=== PATIENT | female | born 1985 | race Caucasian/White ===

== ENCOUNTER 2020-07-01 09:35 | Emergency (ER) | payer OTHER, SELFPAY ==
--- NOTE | ~2020-07-01 | US_ITS ---
EXAMINATION: US ABDOMEN LIMITED CLINICAL INFORMATION: Upper abdomen pain. Elevated liver function testing.. COMPARISON: None TECHNIQUE: Real-time imaging of the right upper quadrant abdominal viscera. FINDINGS: PANCREAS: No suspicious abnormality in the visualized portions of the pancreas LIVER: Normal. The liver is normal in size. The liver contour is normal. Parenchymal echogenicity is normal. No focal hepatic lesion. There is no intrahepatic biliary duct dilatation seen. GALLBLADDER: Surgically absent. No tenderness to transducer pressure in the expected region of the gallbladder COMMON BILE DUCT: Normal in caliber measuring 0.6 cm in diameter. RIGHT KIDNEY: Normal. No hydronephrosis. No renal calculi or focal parenchymal lesions. The kidney measures 9.4 cm in maximum dimension. FREE FLUID: None. US/US abdomen limited IMPRESSION: No abnormality demonstrated. Specifically evidence of previous cholecystectomy. No biliary dilation. No ascites
[2020-07-01 09:42] VITALS: BP 138/94; PULSE 71; RESP 20; TEMP 36.8; O2SAT 99; BMI 20.5
--- NOTE | 2020-07-01 11:09 | ED_ITS ---
HPI - Nausea/Vomiting/Diarrhea General Chief complaint: Nausea/Vomiting/Diarrhea Stated complaint: VOMITING Time Seen by Provider: 07/01/20 11:09 Source: patient Mode of arrival: ambulatory Limitations: no limitations History of Present Illness HPI Narrative: 35 yo female with celiac, gastritis, anxiety currently not treated has noted over the past several days increased acid and n/v now with diffuse abdominal pain has had this before in the past, not on PPI anymore MD elicited complaint: nausea, vomiting and abdominal pain Pertinent past history: cyclical vomiting and other (gastritis) Onset (ago): day(s) (several ) Description of vomiting: food contents, watery and bilious Associated nausea: Yes Associated abdominal pain: Yes Location of pain: diffuse Radiation: diffuse Pain consistency: constant Severity: severe Quality: cramping and stabbing Exacerbating factors: eating Relieving factors: none Context: marijuana use Associated symptoms: loss of appetite, malaise and nausea/vomiting Related Data Previous Rx's Medication Instructions Recorded hydroxyzine HCl 25 mg PO TID PRN #30 tab 07/01/20 omeprazole 20 mg PO DAILY 14 Days #14 cap 07/01/20 ondansetron 4 mg PO Q8H PRN #20 tab 07/01/20 Allergies Allergy/AdvReac Type Severity Reaction Status Date / Time morphine [MORPHINE] Allergy Intermediate NAUSEA & Unverified 12/07/19 15:48 VOMITING, Violently ill Review of Systems Review of Systems: Constitutional : No Weight loss, No Fever, No Chills ENT/Mouth : No sore throat, No Rhinorrhea Eyes: No Swelling, No Redness Cardiovascular : No Chest Pain, No SOB, NoEdema Respiratory : No Cough, No Sputum, No Wheezing Gastrointestinal : Positive Nausea, Positive Vomiting, positive Diarrhea, positive abdominal Pain, No Hematochezia, No Melena Genitourinary : No Dysuria, No Urinary Frequency, No Hematuria, No Urgency Musculoskeletal : No joint pain, No Myalgias, No Joint Swelling Skin : No Skin Lesions, No rash Neuro : No Weakness, No Numbness, No Dizziness, No Headache Psych : No Anxiety/Panic, No Depression Heme/Lymph: No Bruising, No Lymphadenopathy Endocrine : No Polyuria, No Polydipsia All other systems reviewed and are negative. Gastrointestinal: Gastrointestinal: Reports nausea PMFSH Past Medical History Attestation statement: The following information was validated with the patient. Medical History (Updated 07/01/20 @ 15:05 by Kailee Rodgers DO) Bile salt-induced diarrhea Celiac disease Chronic superficial gastritis Surgical History H/O section History of appendectomy Hx of cholecystectomy Social History Social History (Updated 07/01/20 @ 11:32 by Kailee Rodgers DO) Alcohol intake: never Smoking Status: Former smoker Smoked in Last 30 Days: No Use of substances other than those prescribed or required for medical reasons: Yes Substance Use Type: Marijuana Substance Use Frequency: Occasionally Advance Directives: No Advance Directives Information Provided: No Physical Exam Vital Signs: Vital Signs: Last Vital Signs Temp 98.2 F 07/01/20 09:42 Pulse 71 07/01/20 09:42 Resp 20 07/01/20 09:42 BP 138/94 H 07/01/20 09:42 Pulse Ox 99 07/01/20 09:42 Body Mass Index 20.5 Appearance: Alert. Oriented X3. anxious, mild acute distress. Eyes: Pupils equal, round and reactive to light. ENT: Pharynx mildly dry MM Neck: Normal inspection. Neck supple. CVS: Normal heart rate and rhythm. Pulses normal. Respiratory: No respiratory distress. Breath sounds normal. Abdomen: Soft and diffusely moderate ttp Skin: Skin warm and dry. Normal skin color. Normal skin turgor. Extremities: No lower extremity edema. No calf ttp Neuro: Oriented X 3. No motor deficit. No sensory deficit. Course Course Course Narrative: no urine provided at this time - feels better, tolerating PO US negative despite LFTs will instruct her to follow up with PCP MDM - Nausea/Vomiting/Diarrhea MDM Narrative Medical decision making narrative: 35 yo female with PMH of gastritis, anxiety comes in with increased acid, n/v/d and abdominal pain also smokes THC regularly, no longer on PPI at this time typical episode for her, will treat n/v and give pepcid basic labs ordered, dispo per results and findings, either gastritis vs THC induced hyperemesis Lab Data Result diagrams: 07/01/20 11:34 07/01/20 11:34 Labs: Lab Results 07/01/20 07/01/20 07/01/20 Range/Units 11:34 11:34 11:34 WBC 7.5 (4.8-10.8) X10*3/uL RBC 4.75 (4.20-5.50) X10*6/uL Hgb 13.6 (12.0-16.0) g/dl Hct 40.4 (37-47) % MCV 85.1 (80-98) fL MCH 28.6 (27.0-33.0) pg MCHC 33.7 (31.0-35.0) g/dl RDW 12.2 (11.0-16.0) % Plt Count 312 (160-400) X10*3/uL MPV 11.0 (9.4-12.3) fL Immature Gran % (Auto) 0.3 (0.0-0.4) % Neut % (Auto) 86.2 H (45-73) % Lymph % (Auto) 10.7 L (20-40) % [place] % (Auto) 2.4 (2-11) % Eos % (Auto) 0.1 (0-4) % Baso % (Auto) 0.3 (0-2) % Lymph # (Auto) 0.8 L (1.2-4.9) X10*3/uL [place] # (Auto) 0.2 (0.1-1.2) X10*3/uL Eos # (Auto) 0.0 (0.0-0.4) X10*3/uL Baso # (Auto) 0.0 (0.0-0.2) X10*3/uL Abs Immat Gran (auto) 0.02 (0.00-0.03) X10*3/uL Absolute Neuts (auto) 6.5 (2.0-8.3) X10*3/uL Absolute Nucleated RBC 0.000 (0.0-0.012) X10*3/uL Nucleated RBC % (auto) 0.0 (0.0-0.2) /100WBC Hold Blue Top SEE NOTE Sodium 138 (135-145) mmol/L Potassium 4.7 (3.3-5.1) mmol/L Chloride 108 (96-108) mmol/L Carbon Dioxide 17 L (22-29) mmol/L Anion Gap 18 (12-20) BUN 10 (9-16) mg/dL Creatinine 0.74 (0.5-1.4) mg/dL Estim Creat Clear Calc 77.6 Estimated GFR > 60 Random Glucose 97 (60-115) mg/dL Calcium 9.5 (8.4-10.2) mg/dL Magnesium (1.6-2.6) mg/dL Total Bilirubin (0.0-1.0) mg/dL Direct Bilirubin (0.0-0.5) mg/dL AST (5-31) U/L ALT (0-31) U/L Alkaline Phosphatase (39-117) U/L Total Protein (6.5-8.0) g/dL Albumin (3.5-5.0) g/dL Lipase (8-78) U/L Urine Color Urine Appearance Urine pH (5.0-8.0) Ur Specific [place] (1.005-1.025) Urine Protein (NEG-TRACE) MG/DL Urine Glucose (UA) (NEG) MG/DL Urine Ketones (NEG) MG/DL Urine Blood (NEG) Urine Nitrite (NEG) Ur Leukocyte Esterase (NEG) Urine Test (NEGATIVE) 07/01/20 07/01/20 07/01/20 Range/Units 11:34 15:16 15:16 WBC (4.8-10.8) X10*3/uL RBC (4.20-5.50) X10*6/uL Hgb (12.0-16.0) g/dl Hct (37-47) % MCV (80-98) fL MCH (27.0-33.0) pg MCHC (31.0-35.0) g/dl RDW (11.0-16.0) % Plt Count (160-400) X10*3/uL MPV (9.4-12.3) fL Immature Gran % (Auto) (0.0-0.4) % Neut % (Auto) (45-73) % Lymph % (Auto) (20-40) % [place] % (Auto) (2-11) % Eos % (Auto) (0-4) % Baso % (Auto) (0-2) % Lymph # (Auto) (1.2-4.9) X10*3/uL [place] # (Auto) (0.1-1.2) X10*3/uL Eos # (Auto) (0.0-0.4) X10*3/uL Baso # (Auto) (0.0-0.2) X10*3/uL Abs Immat Gran (auto) (0.00-0.03) X10*3/uL Absolute Neuts (auto) (2.0-8.3) X10*3/uL Absolute Nucleated RBC (0.0-0.012) X10*3/uL Nucleated RBC % (auto) (0.0-0.2) /100WBC Hold Blue Top Sodium (135-145) mmol/L Potassium (3.3-5.1) mmol/L Chloride (96-108) mmol/L Carbon Dioxide (22-29) mmol/L Anion Gap (12-20) BUN (9-16) mg/dL Creatinine (0.5-1.4) mg/dL Estim Creat Clear Calc Estimated GFR Random Glucose (60-115) mg/dL Calcium (8.4-10.2) mg/dL Magnesium 2.1 (1.6-2.6) mg/dL Total Bilirubin 1.1 H (0.0-1.0) mg/dL Direct Bilirubin 0.3 (0.0-0.5) mg/dL AST 116 H (5-31) U/L ALT 462 H (0-31) U/L Alkaline Phosphatase 71 (39-117) U/L Total Protein 7.7 (6.5-8.0) g/dL Albumin 4.5 (3.5-5.0) g/dL Lipase 12 (8-78) U/L Urine Color YELLOW Urine Appearance CLEAR Urine pH 7.0 (5.0-8.0) Ur Specific [place] 1.020 (1.005-1.025) Urine Protein NEG (NEG-TRACE) MG/DL Urine Glucose (UA) NEG (NEG) MG/DL Urine Ketones >=80 (NEG) MG/DL Urine Blood NEG (NEG) Urine Nitrite NEG (NEG) Ur Leukocyte Esterase NEG (NEG) Urine Test NEGATIVE (NEGATIVE) Discharge Plan Discharge Clinical Impression: Elevated liver function tests Gastritis Qualifiers: Gastritis type: unspecified gastritis Chronicity: acute Gastritis bleeding: without bleeding Qualified Code(s): K29.00 - Acute gastritis without bleeding Vomiting Qualifiers: Vomiting type: unspecified Vomiting Intractability: non-intractable Nausea presence: with nausea Qualified Code(s): R11.2 - Nausea with vomiting, unspecified Patient Disposition: Home, Self-Care Instructions: Gastritis (ED), Acute Nausea and Vomiting (ED) Additional Instructions: return to ED for any worsening symptoms or concerns AVOID TYLENOL (ACETAMINOPHEN) PRODUCTS, YOUR DOCTOR NEEDS TO REPEAT YOUR LIVER FUNCTION TESTS IN 3 TO 5 DAYS WITH YOUR DOCTOR, DO NOT DRINK ALCOHOL Prescriptions: New ondansetron 4 mg tablet,disintegrating 4 mg PO Q8H PRN (Reason: nausea and vomiting) Qty: 20 RF: 0 omeprazole 20 mg capsule,delayed release(DR/EC) 20 mg PO DAILY 14 Days Qty: 14 RF: 0 hydroxyzine HCl 25 mg tablet 25 mg PO TID PRN (Reason: anxiety) Qty: 30 RF: 0 Referrals: Lexi Aldrich MD [Primary Care Provider] - 3 days
[2020-07-01 11:38] LABS: MANUAL DIFF FLAG NO
[2020-07-01 11:40] LABS: Basophils Percent Auto 0.3 % (0-2); Eosinophils Percent Auto 0.1 % (0-4); Hematocrit 40.4 % (37-47); Hemoglobin 13.6 g/dl (12.0-16.0); Imm Gran Abs Auto 0.02 X10*3/uL (0.00-0.03); Imm Gran Pct Auto 0.3 % (0.0-0.4); Lymphocytes Absolute Auto 0.8 X10*3/uL (1.2-4.9); Lymphocytes Percent Auto 10.7 % (20-40); Mean Corpuscular HGB Conc 33.7 g/dl (31.0-35.0); Mean Corpuscular Hemoglobin 28.6 pg (27.0-33.0); Mean Corpuscular Volume 85.1 fL (80-98); Monocytes Absolute Auto 0.2 X10*3/uL (0.1-1.2); Monocytes Percent Auto 2.4 % (2-11); Neutrophils Absolute Auto 6.5 X10*3/uL (2.0-8.3); Neutrophils Percent Auto 86.2 % (45-73); Platelet Count 312 X10*3/uL (160-400); Red Blood Count 4.75 X10*6/uL (4.20-5.50); Red Cell Distribution Width 12.2 % (11.0-16.0); White Blood Count 7.5 X10*3/uL (4.8-10.8)
[2020-07-01] MEDS: Metoclopramide HCl 10 MG/2 ML VIAL IVPUSH (12:01)
[2020-07-01] MEDS: diphenhydrAMINE HCL 50 MG/ML VIAL 25 MG IVPUSH (12:01)
[2020-07-01] MEDS: Famotidine/PF 20 MG/2 ML VIAL IVPUSH (12:01)
[2020-07-01] MEDS: 0.9 % Sodium Chloride 1,000 ML 999 ML IVCONT (12:01)
[2020-07-01 12:10] LABS: Anion Gap 18 (12-20); Blood Urea Nitrogen 10 mg/dL (9-16); Calcium 9.5 mg/dL (8.4-10.2); Carbon Dioxide 17 mmol/L (22-29); Chloride 108 mmol/L (96-108); Creatinine Clr Calc Pharmacy 77.6; Estimated Glomerular Filt Rate > 60; Glucose Random 97 mg/dL (60-115); Potassium 4.7 mmol/L (3.3-5.1); Sodium 138 mmol/L (135-145)
[2020-07-01 12:14] LABS: Alanine Aminotransferase 462 U/L (0-31); Albumin Level 4.5 g/dL (3.5-5.0); Alkaline Phosphatase 71 U/L (39-117); Aspartate Amino Transferase 116 U/L (5-31); Bilirubin Direct 0.3 mg/dL (0.0-0.5); Bilirubin Total 1.1 mg/dL (0.0-1.0); Lipase 12 U/L (8-78); Magnesium 2.1 mg/dL (1.6-2.6); Total Protein 7.7 g/dL (6.5-8.0)
--- NOTE | 2020-07-01 15:02 | PC.NURSE ---
given po challenge, tolerating w/o notable n/v.
[2020-07-01 15:34] LABS: Glucose Urine UA NEG (NEG); Leukocyte Esterase Urine NEG (NEG); Nitrite Urine NEG (NEG); Urine Blood NEG (NEG); Urine Ketones >=80 MG/DL (NEG); Urine Protein NEG (NEG-TRACE)
[2020-07-01 15:50] LABS: Appearance Urine CLEAR; Color Urine YELLOW
[2020-07-01 15:51] LABS: UPreg QC Valid YES; Urine Pregnancy NEGATIVE (NEGATIVE)
[2020-07-01 15:59] LABS: Amphetamine Screen Urine Not Detected (Not Detect); Barbiturates, Urine Not Detected (Not Detect); Benzodiazepines Screen Urine Not Detected (Not Detect); Cannabinoid Screen Urine POSITIVE (Not Detect); Cocaine Screen Urine Not Detected (Not Detect); Opiate Screen Urine Not Detected (Not Detect); Phencyclidine Screen Urine Not Detected (Not Detect)
== END 2020-07-01 15:59 | disposition home or self-care (01) ==
PROVIDERS: Emergency Provider Emergency Medicine; PCP Internal Medicine
DX: K29.00 Acute gastritis without bleeding (principal); R11.2 Nausea with vomiting, unspecified; R79.89 Other specified abnormal findings of blood chemistry; F12.90 Cannabis use, unspecified, uncomplicated
CPT/HCPCS: 36415; 76705; 80048; 80076; 80307; 81003; 81025; 83690; 83735; 85025; 96361; 96374; 96375; 99284; J1200; J2765

== ENCOUNTER 2020-09-03 10:18 | Outpatient (REF) | payer OTHER, SELFPAY | END 2020-09-03 10:19 | disposition home or self-care (01) | LOC: HO.LAB 10:18 | PROVIDERS: PCP Internal Medicine; Visit Provider Physician Assistant | DX: Z13.89 Encounter for screening for other disorder (principal) ==

== ENCOUNTER 2020-09-03 11:44 | Outpatient (REF) | payer OTHER, SELFPAY ==
[2020-09-03 14:18] LABS: Alanine Aminotransferase 20 U/L (0-31); Albumin Level 4.5 g/dL (3.5-5.0); Alkaline Phosphatase 65 U/L (39-117); Aspartate Amino Transferase 19 U/L (5-31); Bilirubin Direct 0.3 mg/dL (0.0-0.5); Bilirubin Total 0.8 mg/dL (0.0-1.0); C Reactive Protein 0.09 mg/dL (< or = 0.50); Lipase 17 U/L (8-78); Total Protein 7.2 g/dL (6.5-8.0)
[2020-09-03 14:54] LABS: Erythrocyte Sedimentation Rate 4 MM/HR (0-20)
[2020-09-04 07:36] LABS: HBS Num1 403.25 mIU/mL (0-7.99); HBc Num1 0.06 S/CO (0.00-0.79); Hepatitis A Antibody IgM 0.19 Index (0-0.79); Hepatitis B Core Antibody Nonreactive (Nonreactive); ~HepC Num1 0.05 S/CO (0.00-0.79); ~Hepatitis A Antibody IgM Nonreactive (Nonreactive); ~Hepatitis B Surface Antibody REACTIVE (Nonreactive); ~Hepatitis C Antibody Nonreactive (Nonreactive)
[2020-09-04 07:47] LABS: HBsAGNum1 0.25 S/CO (0.00-0.99); Hepatitis B Surface Antigen Negative (Negative)
[2020-09-05 13:52] LABS: Alpha 1 Anti-trypsin 199 mg/dL (83-199); Ceruloplasmin 41 mg/dL (18-53)
[2020-09-05 15:27] LABS: Transglutaminase IgA 1 U/mL
[2020-09-05 23:11] LABS: HCV Log PCR <1.18 NOT DETECTED Log IU/mL (NOT DETECTED); HepC Viral Load <15 NOT DETECTED IU/mL (NOT DETECTED)
[2020-09-07 12:52] LABS: Endomysial IgA Antibody Negative (Negative)
[2020-09-07 15:16] LABS: Anti Nuclear Antibody Screen NEGATIVE (NEGATIVE)
== END 2020-09-03 11:45 | disposition home or self-care (01) ==
LOC: HO.WFDLDS 11:44
PROVIDERS: Visit Provider Physician Assistant
DX: R10.11 Right upper quadrant pain (principal); R74.01 Elevation of levels of liver transaminase levels; R74.8 Abnormal levels of other serum enzymes; K52.9 Noninfective gastroenteritis and colitis, unspecified; R79.89 Other specified abnormal findings of blood chemistry; B19.20 Unspecified viral hepatitis C without hepatic coma
CPT/HCPCS: 80076; 82103; 82390; 83516; 83690; 85652; 86038; 86039; 86140; 86255; 86256; 86704; 86706; 86709; 86803; 87340; 87522

== ENCOUNTER 2020-09-05 15:57 | Outpatient (REF) | payer OTHER, SELFPAY ==
[2020-09-12 01:46] LABS: Calprotectin, Fecal 17 mcg/g
== END 2020-09-05 15:58 | disposition home or self-care (01) ==
LOC: HO.LNP 15:57
PROVIDERS: Visit Provider Physician Assistant
DX: K52.9 Noninfective gastroenteritis and colitis, unspecified (principal); R11.2 Nausea with vomiting, unspecified; R74.8 Abnormal levels of other serum enzymes
CPT/HCPCS: 83993; 87045; 87046; 87177; 87209; 87329

== ENCOUNTER 2020-09-13 11:25 | Outpatient (REF) | payer OTHER, SELFPAY ==
--- NOTE | ~2020-09-13 | US_ITS ---
EXAMINATION: US ABDOMEN LIMITED CLINICAL INFORMATION: Abnormal levels of other serum enzymes. COMPARISON: Ultrasound abdomen limited dated 07/01/2020. Ultrasound abdomen complete dated 10/13/2018. CT abdomen and pelvis with intravenous contrast only dated 10/09/2018. TECHNIQUE: Real-time imaging of the right upper quadrant abdominal viscera. FINDINGS: PANCREAS: Homogeneous pancreas without focal lesion. LIVER: Normal. The liver is normal in size. The liver contour is normal. Parenchymal echogenicity is normal. No focal hepatic lesion. There is no intrahepatic biliary duct dilatation seen. GALLBLADDER: Surgically absent. COMMON BILE DUCT: Normal in caliber measuring 0.63 cm in diameter. RIGHT KIDNEY: Normal. No hydronephrosis. No renal calculi or focal parenchymal lesions. The kidney measures 9.4 cm in maximum dimension. FREE FLUID: None. US/US abdomen limited IMPRESSION: Unremarkable limited abdomen ultrasound. No change from recent ultrasound exam 07/01/2020
== END 2020-09-13 11:26 | disposition home or self-care (01) ==
LOC: HO.HMGCX 11:25
PROVIDERS: PCP Internal Medicine; Visit Provider Internal Medicine
DX: R74.8 Abnormal levels of other serum enzymes (principal)
CPT/HCPCS: 76705

== ENCOUNTER → 2020-09-17 08:25 | Outpatient (BNVA) | payer OTHER, SELFPAY | PROVIDERS: PCP Internal Medicine; Referring Provider Internal Medicine; Visit Provider Physician Assistant | DX: R74.8 Abnormal levels of other serum enzymes (principal); R11.2 Nausea with vomiting, unspecified | CPT/HCPCS: 99212 ==

== ENCOUNTER 2020-09-17 09:26 | Outpatient (REF) | payer OTHER, SELFPAY ==
[2020-09-17 12:42] LABS: Thyroid Stimulating Hormone 0.54 uIU/mL (0.32-4.0)
== END 2020-09-17 09:27 | disposition home or self-care (01) ==
LOC: HO.WFDLDS 09:26
PROVIDERS: Visit Provider Physician Assistant
DX: K59.09 Other constipation (principal)
CPT/HCPCS: 36415; 84443

== ENCOUNTER → 2020-10-22 08:35 | Outpatient (BNVA) | payer OTHER, SELFPAY | PROVIDERS: PCP Internal Medicine; Referring Provider Internal Medicine; Visit Provider Physician Assistant | DX: R11.2 Nausea with vomiting, unspecified (principal); K52.9 Noninfective gastroenteritis and colitis, unspecified; R74.8 Abnormal levels of other serum enzymes | CPT/HCPCS: 99212 ==

== ENCOUNTER 2021-12-31 16:17 | Emergency (ER) | payer OTHER, SELFPAY ==
--- NOTE | ~2021-12-31 | CT_ITS ---
EXAMINATION: CTA CHEST PE STUDY CLINICAL INFORMATION: tachy, sob, hormones COMPARISON: No pertinent prior studies are available for comparison. TECHNIQUE: Prior to contrast administration, noncontrast localization images were obtained. After the administration of 54 mL of Omnipaque nonionic IV contrast, contiguous thin slice helical images were obtained through the thorax. Reformatted MIP images in the coronal and sagittal planes were obtained at the acquisition workstation. This CT examination was performed using dose optimization techniques as appropriate, variously including the following: *Automated exposure control *Adjustment of mA and/or kV according to patient size (this includes techniques or standardized protocols for targeted exams where dose is matched to indication/reason for exam; i.e. extremities or head) *Use of iterative reconstruction technique DLP: 146 mGy-cm. FINDINGS: The bolus timing on this study was acceptable for visualization of the pulmonary arterial tree. There are no intraluminal pulmonary arterial filling defects present to suggest pulmonary embolism. The lungs are clear. No abnormal pulmonary nodules or masses are appreciated. No significant hilar or mediastinal adenopathy. There is no evidence of pleural effusion or pneumothorax. The heart is normal in size. No evidence of ventricular septal bowing or right heart strain. Great vessels are normal. Otherwise the mediastinum is unremarkable. There is no pericardial effusion or pericardial thickening. Limited evaluation of the upper abdominal viscera demonstrates the gallbladder to be surgically absent. CT/CT angio chest PE protocol IMPRESSION: No evidence for pulmonary emboli. No focal airspace disease VTE: Negative
[2021-12-31 17:40] VITALS: BP 185/118; PULSE 100; RESP 16; TEMP 36.8; O2SAT 99; BMI 18.5
--- NOTE | 2021-12-31 17:43 | ECG_ITS ---
Test Reason : HYPERTENSION Blood Pressure : / mmHG Vent. Rate : 082 BPM Atrial Rate : 082 BPM P-R Int : 108 ms QRS Dur : 076 ms QT Int : 404 ms P-R-T Axes : 080 096 072 degrees QTc Int : 472 ms Sinus rhythm with sinus arrhythmia with short MT with occasional Premature ventricular complexes Rightward axis Borderline ECG When compared with ECG of 12-OCT-2018 09:54, Premature ventricular complexes are now Present T wave amplitude has increased in Anterior leads ST no longer depressed in Inferior leads Lateral leads Referred By: Generic ED Physician Electronically Signed By:WHITNEY WILSON MD
[2021-12-31 18:02] LABS: Hematocrit 42.4 % (37.0-47.0); Hemoglobin 14.9 g/dl (12.0-16.0); Mean Corpuscular HGB Conc 35.1 g/dl (31.0-35.0); Mean Corpuscular Hemoglobin 29.2 pg (27.0-33.0); Mean Platelet Volume 10.6 fL (9.4-12.3); Platelet Count 308 X10*3/uL (160-400); Red Blood Count 5.11 X10*6/uL (4.20-5.50); Red Cell Distribution Width 12.1 % (11.0-16.0); White Blood Count 7.3 X10*3/uL (4.8-10.8)
[2021-12-31 18:19] LABS: Anion Gap 20 (12-20); Blood Urea Nitrogen 10 mg/dL (9-16); Calcium 9.8 mg/dL (8.4-10.2); Carbon Dioxide 18 mmol/L (22-29); Chloride 106 mmol/L (96-108); Creatinine Clr Calc Pharmacy 70.9; Estimated Glomerular Filt Rate > 60; Glucose Random 95 mg/dL (60-115); Potassium 3.6 mmol/L (3.3-5.1); Sodium 140 mmol/L (135-145)
[2021-12-31 18:26] LABS: Troponin-I High Sensitivity < 3.5 ng/L (<3.5-17.0)
--- NOTE | 2021-12-31 20:28 | ED_ITS ---
HPI - General Adult General Chief complaint: Recheck/Abnormal Lab/Rx Stated complaint: High Blood Pressure Time Seen by Provider: 12/31/21 20:23 Source: patient Mode of arrival: ambulatory Limitations: no limitations History of Present Illness HPI narrative: 36-year-old female presents for elevated blood pressure, dizziness, shortness of breath on exertion, chest pain radiating to her back. She states the pain is worsened over the past few hours while she was waiting. She was at her doctor's office to obtain a prescription for control. She has been on control for several years. She does vape, but does not report smoking any other substances. She does not report any edema, productive cough, abdominal pain, abdominal distention, dysuria, hematuria, headache, changes in vision or weakness. Onset (ago): day(s) Location: chest Radiation: non-radiation Severity: moderate Severity scale (1-10): 4 Quality: aching Pain Consistency: constant Relieving factors: none Exacerbating factors: movement Associated symptoms: chest pain and other (Back pain) Treatments prior to arrival: none Related Data Home Medications Medication Instructions Recorded Confirmed desogestrel 0.15 mg-ethinyl 1 tab PO DAILY 08/22/20 09/17/20 estradiol 0.03 mg tablet Previous Rx's Medication Instructions Recorded omeprazole 20 mg capsule,delayed 20 mg PO DAILY 14 days #14 caps 07/01/20 release hydroxyzine HCl 25 mg tablet 25 mg PO BEDTIME #30 tabs 09/17/20 ondansetron 4 mg disintegrating 4 mg PO Q8H PRN nausea and 10/22/20 tablet vomiting #20 tabs hydrochlorothiazide 12.5 mg tablet 12.5 mg PO DAILY #30 tabs 12/31/21 Allergies Allergy/AdvReac Type Severity Reaction Status Date / Time morphine [MORPHINE] Allergy Intermediate NAUSEA & Verified 10/22/20 08:45 VOMITING, Violently ill Review of Systems Review of Systems: Constitutional: No Fever, No Chills ENT/Mouth: No Ear Pain, No Hoarseness, No sore throat Eyes: No Eye Pain, No Swelling, No Redness, No Foreign Body Cardiovascular: Positive Chest Pain, positive SOB on exertion Respiratory: No Cough, No Dyspnea Gastrointestinal: No Nausea, No Vomiting, No Diarrhea, No abdominal Pain Genitourinary: No Dysuria, No Hematuria Musculoskeletal: Positive back pain, No Myalgias, No Joint Swelling Skin: No Skin lacerations, No rash Neuro: No Weakness, No Numbness, No Paresthesias, No Loss of Consciousness, positive Dizziness, No Headache Psych: No Anxiety/Panic, No Depression Heme/Lymph: no easy bruising, no Lymphadenopathy Endocrine: No Polyuria, No Polydipsia Yes all other systems are reviewed and are negative [facility] Past Medical History Attestation statement: The following information was validated with the patient. Source: old records reviewed Medical History Bile salt-induced diarrhea Celiac disease Chronic superficial gastritis Elevated liver enzymes Generalized anxiety disorder Surgical History H/O section H/O LEEP History of appendectomy Hx of cholecystectomy Family History Family History Father Acute myocardial infarction Social History Social History Household Members Other:: Three children, recently single Alcohol intake: never Substance Use Type: Marijuana Advance Directives: No Advance Directives Information Provided: No Physical Exam ED Vital Signs: Vital Signs - 24 hr 12/31/21 17:40 12/31/21 20:30 12/31/21 20:33 Temperature 98.2 F Pulse Rate 100 81 Respiratory Rate 16 18 Blood Pressure 185/118 H 178/113 H 183/99 H Pulse Oximetry 99 98 Oxygen Delivery Method Room Air Room Air 12/31/21 22:26 Temperature Pulse Rate 73 Respiratory Rate 18 Blood Pressure 127/80 Pulse Oximetry 98 Oxygen Delivery Method Room Air BMI result Body Mass Index 18.5 Appearance: Alert. Oriented X3. No acute distress. Eyes: Pupils equal, round and reactive to light. ENT: Pharynx normal. Neck: Normal inspection. Neck supple. CVS: Tachycardic heart rate and rhythm. Apical pulse good pulses to extremities. Respiratory: No respiratory distress. Breath sounds normal. Abdomen: Soft and nontender. Skin: Skin warm and dry. Normal skin color. Normal skin turgor. Extremities: No lower extremity edema. Gait well-balanced well coordinated. Neuro: No motor deficit. No sensory deficit. Cranial nerves 2-12 intact. Course Course Course Narrative: 36-year-old female presents from her physician's office for evaluation for elevated blood pressure, dizziness, chest pain, back pain, and overall feeling of unwellness. Patient was being evaluated for control, which she has been on for several years, which she was referred to emergency department for an elevated blood pressure. Blood pressure reading on initial presentation was 185/118 with a tachycardic heart rate of 100. Patient has chest pain and pressure throughout the left chest wall, and an aching back pain. She is alert oriented x4, articulating appropriately, has a well-balanced well coordinated gait. Wells PE score 4.5. Will order CT PE study. 22:30 CT PE negative. Patient states that she does not feel well, lab workup is unremarkable. COVID tests are negative. Will add on TSH. 23:09 TSH is within normal limits. Will have patient follow-up with primary care physician for further workup. Will treat with prescription for hydrochlorothiazide for elevated blood pressures. Patient verbalized understanding of and agrees to plan of care discharge home. Verbalized understanding of signs and symptoms indicating need for emergent intervention. Medical Decision Making Differential Diagnosis Differential Diagnosis: PE, pneumo thorax, COVID, influenza, pneumonia Medical Records Medical records reviewed: Yes I reviewed the patient's medical records. Lab Data Lab results reviewed: Yes I reviewed the patient's lab results. Result diagrams: 12/31/21 17:50 12/31/21 17:50 Labs: Lab Results 12/31/21 12/31/21 12/31/21 Range/Units 17:50 17:50 17:50 WBC 7.3 (4.8-10.8) X10*3/uL RBC 5.11 (4.20-5.50) X10*6/uL Hgb 14.9 (12.0-16.0) g/dl Hct 42.4 (37.0-47.0) % MCV 83.0 (80.0-98.0) fL MCH 29.2 (27.0-33.0) pg MCHC 35.1 H (31.0-35.0) g/dl RDW 12.1 (11.0-16.0) % Plt Count 308 (160-400) X10*3/uL MPV 10.6 (9.4-12.3) fL Absolute Nucleated RBC 0.000 (0.0-0.012) X10*3/uL Nucleated RBC % (auto) 0.0 (0.0-0.2) /100WBC Sodium 140 (135-145) mmol/L Potassium 3.6 D (3.3-5.1) mmol/L Chloride 106 (96-108) mmol/L Carbon Dioxide 18 L (22-29) mmol/L Anion Gap 20 (12-20) BUN 10 (9-16) mg/dL Creatinine 0.76 (0.5-1.4) mg/dL Estim Creat Clear Calc 70.9 Estimated GFR > 60 Random Glucose 95 (60-115) mg/dL Calcium 9.8 (8.4-10.2) mg/dL Magnesium 2.0 (1.6-2.6) mg/dL Troponin I High Sens < 3.5 (<3.5-17.0) ng/L Urine Color Urine Appearance Urine pH (5.0-9.0) Ur Specific [place] (1.005-1.025) Urine Protein (Neg-Trace) mg/dL Urine Glucose (UA) (Negative) mg/dL Urine Ketones (Negative) mg/dL Urine Blood (Negative) Urine Nitrite (Negative) Ur Leukocyte Esterase (Negative) Influenza Type A (PCR) (Negative) Influenza Type B (PCR) (Negative) RSV RNA Qual (PCR) (Negative) SARS-CoV-2 RNA (RT-PCR) (Negative) 12/31/21 12/31/21 Range/Units 20:37 22:26 WBC (4.8-10.8) X10*3/uL RBC (4.20-5.50) X10*6/uL Hgb (12.0-16.0) g/dl Hct (37.0-47.0) % MCV (80.0-98.0) fL MCH (27.0-33.0) pg MCHC (31.0-35.0) g/dl RDW (11.0-16.0) % Plt Count (160-400) X10*3/uL MPV (9.4-12.3) fL Absolute Nucleated RBC (0.0-0.012) X10*3/uL Nucleated RBC % (auto) (0.0-0.2) /100WBC Sodium (135-145) mmol/L Potassium (3.3-5.1) mmol/L Chloride (96-108) mmol/L Carbon Dioxide (22-29) mmol/L Anion Gap (12-20) BUN (9-16) mg/dL Creatinine (0.5-1.4) mg/dL Estim Creat Clear Calc Estimated GFR Random Glucose (60-115) mg/dL Calcium (8.4-10.2) mg/dL Magnesium (1.6-2.6) mg/dL Troponin I High Sens (<3.5-17.0) ng/L Urine Color Yellow Urine Appearance Clear Urine pH 8.5 (5.0-9.0) Ur Specific [place] >= 1.030 H (1.005-1.025) Urine Protein Negative (Neg-Trace) mg/dL Urine Glucose (UA) Negative (Negative) mg/dL Urine Ketones 40 (Negative) mg/dL Urine Blood Negative (Negative) Urine Nitrite Negative (Negative) Ur Leukocyte Esterase Negative (Negative) Influenza Type A (PCR) NEGATIVE (Negative) Influenza Type B (PCR) NEGATIVE (Negative) RSV RNA Qual (PCR) NEGATIVE (Negative) SARS-CoV-2 RNA (RT-PCR) NEGATIVE (Negative) Imaging Data Chest PE: Attestation: I personally reviewed and interpreted this imaging study as follows: Radiologist's impression: EXAMINATION: CTA CHEST PE STUDY CLINICAL INFORMATION: tachy, sob, hormones COMPARISON: No pertinent prior studies are available for comparison.? TECHNIQUE: Prior to contrast administration, noncontrast localization images were obtained. After the administration of 54 mL of Omnipaque nonionic? IV contrast, contiguous thin slice helical images were obtained through the thorax. Reformatted MIP images in the coronal and sagittal planes were obtained at the acquisition workstation. This CT examination was performed using dose optimization techniques as appropriate, variously including the following: *Automated exposure control *Adjustment of mA and/or kV according to patient size (this includes techniques or standardized protocols for targeted exams where dose is matched to indication/reason for exam; i.e. extremities or head) *Use of iterative reconstruction technique DLP: 146 mGy-cm. FINDINGS: The bolus timing on this study was acceptable for visualization of the pulmonary arterial tree. There are no intraluminal pulmonary arterial filling defects present to suggest pulmonary embolism. The lungs are clear. No abnormal pulmonary nodules or masses are appreciated. No significant hilar or mediastinal adenopathy.? There is no evidence of pleural effusion or pneumothorax. The heart is normal in size. No evidence of ventricular septal bowing or right heart strain. Great vessels are normal. Otherwise the mediastinum is unremarkable.? There is no pericardial effusion or pericardial thickening. Limited evaluation of the upper abdominal viscera demonstrates the gallbladder to be surgically absent. CT/CT angio chest PE protocol IMPRESSION: No evidence for pulmonary emboli. No focal airspace disease ? VTE: Negative ECG Data Attestation: I personally reviewed and interpreted this ECG as follows: Prior ECG tracings: available for review Interpretation: Vent. rate 82 BPM SC interval 108 ms QRS duration 76 ms QT/QTc 404/472 ms P-R-T axes 80 96 72 Sinus rhythm with sinus arrhythmia with short SC with occasional Premature ventricular complexes Rightward axis Borderline ECG When compared with ECG of 12-OCT-2018 09:54, Premature ventricular complexes are now Present T wave amplitude has increased in Anterior leads 31-DEC-2021 19:37:50 Scores [place] PE Clinical symptoms of DVT: 3 Heart rate > 100 p/min: 1.5 Score: 4.5 2-tier Risk: likely risk (17-53%) Discharge Plan Discharge Clinical Impression: Hypertension Patient Disposition: Home, Self-Care Instructions: Hypertension (ED) Additional Instructions: You were evaluated for hypertension and chest pain. CT angio negative for acute findings. TSH is within normal limits at 0.98, cardiac enzymes are negative, EKG did not indicate ischemia. Please follow-up with primary care physician. We are treating you with hydrochlorothiazide 12.5 mg daily for elevated blood pressures. You must follow-up with primary care physician in approximately 1 month for blood pressure checks and lab values. Thank you for choosing this emergency department for evaluation. Please follow-up with primary care physician as needed. Return to the emergency department for any new, concerning, or worsening symptoms. Prescriptions: New hydrochlorothiazide 12.5 mg tablet 12.5 mg PO DAILY Qty: 30 3RF No Action omeprazole 20 mg capsule,delayed release(DR/EC) 20 mg PO DAILY 14 Days Qty: 14 0RF desogestrel-ethinyl estradiol 0.15-0.03 mg tablet 1 tab PO DAILY hydroxyzine HCl 25 mg tablet 25 mg PO BEDTIME Qty: 30 0RF ondansetron 4 mg tablet,disintegrating 4 mg PO Q8H PRN (Reason: nausea and vomiting) Qty: 20 0RF Referrals: Lexi Aldrich MD [Primary Care Provider] - 2 weeks (Hypertension)
[2021-12-31 20:30] VITALS: BP 178/113; PULSE 81; RESP 18; O2SAT 98
[2021-12-31 20:33] VITALS: BP 183/99
[2021-12-31] MEDS: Ketorolac Tromethamine 30 MG/ML VIAL IVPUSH (20:56)
[2021-12-31] MEDS: iohexoL 350 MG/ML 100 ML INFUS..BTL IV (20:57)
[2021-12-31 21:19] LABS: Influenza A PCR NEGATIVE (Negative); Influenza B PCR NEGATIVE (Negative); Resp Syncy Virus RNA Qual PCR NEGATIVE (Negative); SARS COV2 PCR INHOUSE NEGATIVE (Negative)
[2021-12-31 22:26] VITALS: BP 127/80; PULSE 73; RESP 18; O2SAT 98
[2021-12-31 22:33] LABS: Appearance Urine Clear; Color Urine Yellow; Glucose Urine UA Negative (Negative); Leukocyte Esterase Urine Negative (Negative); Nitrite Urine Negative (Negative); PH 8.5 (5.0-9.0); Specific Gravity - Urine >= 1.030 (1.005-1.025); Urine Blood Negative (Negative); Urine Ketones 40 mg/dL (Negative); Urine Protein Negative (Neg-Trace)
[2021-12-31 23:02] LABS: TSH reflex Free T4 0.98 uIU/mL (0.32-4.0)
== END 2021-12-31 23:41 | disposition home or self-care (01) ==
PROVIDERS: Nurse Practitioner Family; Emergency Provider Emergency Medicine; PCP Internal Medicine
DX: R42 Dizziness and giddiness (principal); I10 Essential (primary) hypertension; R00.0 Tachycardia, unspecified; R06.02 Shortness of breath; M54.50 Low back pain, unspecified; Z20.822 Contact with and (suspected) exposure to COVID-19; Z79.899 Other long term (current) drug therapy
CPT/HCPCS: 0241U; 36415; 71275; 80048; 81003; 83735; 84443; 84484; 85027; 93005; 96374; 99284; J1885; Q9967

== ENCOUNTER 2022-01-02 14:35 | Inpatient (IN) | payer OTHER, SELFPAY ==
[2022-01-02] VITALS (7 sets, daily range): BP systolic 122–162; BP diastolic 88–116; PULSE 91–140; RESP 15–22; TEMP 36.4–37.1; O2SAT 98–99; BMI 18.5
--- NOTE | ~2022-01-02 | CT_ITS ---
EXAMINATION: CT ABDOMEN AND PELVIS WITH CONTRAST CLINICAL INFORMATION: Left-sided mid abdominal pain COMPARISON: None TECHNIQUE: Multidetector volumetric images were obtained from the superior aspect of the liver through the pubic symphysis following administration 85 mL of Omnipaque 350 intravenous contrast. Sagittal and coronal reformatted images were obtained on the technologist's workstation. Oral contrast: No This CT examination was performed using dose optimization techniques as appropriate, variously including the following: *Automated exposure control *Adjustment of mA and/or kV according to patient size (this includes techniques or standardized protocols for targeted exams where dose is matched to indication/reason for exam; i.e. extremities or head) *Use of iterative reconstruction technique DLP: 267 mGy-cm FINDINGS: LUNG BASES: The visualized lung bases are unremarkable. LIVER, GALLBLADDER, AND BILIARY TREE: The liver is normal in size, shape, and attenuation. No focal hepatic lesion or biliary ductal dilatation is present. The gallbladder is absent. PANCREAS: Unremarkable. SPLEEN: Unremarkable. ADRENAL GLANDS: Unremarkable. KIDNEYS AND URETERS: The kidneys are normal in size, shape, and attenuation. No hydronephrosis, hydroureter, or calculi seen. No perinephric stranding. BLADDER: Unremarkable. GASTROINTESTINAL TRACT: Suture material is seen at the base of the cecum. The appendix is not identified. The colon is stool-filled. There is no bowel obstruction or right or left lower quadrant inflammatory change. ABDOMINAL WALL: There is a small fat-containing umbilical hernia. Bowel does not participate. LYMPH NODES: Normal. VASCULAR: Unremarkable. PELVIC VISCERA: The right ovary contains several cysts measuring up to 15 mm likely physiologic. Uterus and left adnexa unremarkable. OSSEOUS STRUCTURES: Unremarkable. CT/CT abdomen pelvis w IV con IMPRESSION: Right ovarian cyst likely physiologic. No bowel obstruction. There is no acute findings in the left mid abdomen as questioned. No hydronephrosis. Fleischner guidelines were followed.
--- NOTE | ~2022-01-02 | CT_ITS ---
EXAMINATION: CT HEAD WITHOUT CONTRAST CLINICAL INFORMATION: Headaches and hypertension COMPARISON: None TECHNIQUE: Contiguous axial imaging was performed from the skull base to vertex without intravenous administration of contrast. This CT examination was performed using dose optimization techniques as appropriate, variously including the following: *Automated exposure control *Adjustment of mA and/or kV according to patient size (this includes techniques or standardized protocols for targeted exams where dose is matched to indication/reason for exam; i.e. extremities or head) *Use of iterative reconstruction technique DLP: 558 mGy-cm FINDINGS: No intra or extra-axial fluid collection or hemorrhage, mass or mass effect. Sulci and ventricles normal. Calvarium intact. CT/CT head/brain wo IV con IMPRESSION: No acute intracranial pathology.
--- NOTE | ~2022-01-02 | XR_ITS ---
EXAMINATION: XR CHEST CLINICAL INFORMATION: Chest pain COMPARISON: Previous chest x-ray June 2019 and chest CTA December 2021 TECHNIQUE: Frontal view of the chest was obtained. FINDINGS: The cardiac and mediastinal contours are normal. The lungs are well inflated. The lungs are clear. There is no pleural effusion or pneumothorax. Bony structures are unremarkable. XR/XR chest 1V IMPRESSION: Well-inflated lungs. No evidence for acute disease in the chest.
--- NOTE | 2022-01-02 14:55 | ECG_ITS ---
Test Reason : CX PAIN Blood Pressure : / mmHG Vent. Rate : 124 BPM Atrial Rate : 124 BPM P-R Int : 118 ms QRS Dur : 070 ms QT Int : 312 ms P-R-T Axes : 083 104 057 degrees QTc Int : 448 ms Sinus tachycardia Right atrial enlargement Rightward axis Nonspecific ST abnormality Inferior leads Pulmonary disease pattern Abnormal ECG When compared with ECG of 31-DEC-2021 19:37, Premature ventricular complexes are no longer Present Vent. rate has increased BY 42 BPM Referred By: Generic ED Physician Electronically Signed By:WHITNEY WILSON MD
[2022-01-02 15:13] LABS: MANUAL DIFF FLAG NO
[2022-01-02 15:15] LABS: Basophils Absolute Auto 0.1 X10*3/uL (0.0-0.2); Eosinophils Absolute Auto 0.1 X10*3/uL (0.0-0.4); Eosinophils Percent Auto 1.2 % (0-4); Hematocrit 42.7 % (37.0-47.0); Hemoglobin 15.6 g/dl (12.0-16.0); Imm Gran Abs Auto 0.03 X10*3/uL (0.00-0.03); Imm Gran Pct Auto 0.3 % (0.0-0.4); Lymphocytes Absolute Auto 3.7 X10*3/uL (1.2-4.9); Lymphocytes Percent Auto 39.5 % (20-40); Mean Corpuscular HGB Conc 36.5 g/dl (31.0-35.0); Mean Corpuscular Hemoglobin 30.4 pg (27.0-33.0); Mean Corpuscular Volume 83.2 fL (80.0-98.0); Mean Platelet Volume 10.6 fL (9.4-12.3); Monocytes Absolute Auto 0.8 X10*3/uL (0.1-1.2); Neutrophils Absolute Auto 4.5 x10*3/uL (2.0-8.3); Platelet Count 309 X10*3/uL (160-400); Red Blood Count 5.13 X10*6/uL (4.20-5.50); Red Cell Distribution Width 12.8 % (11.0-16.0); White Blood Count 9.2 X10*3/uL (4.8-10.8)
--- NOTE | 2022-01-02 15:34 | ED_ITS ---
HPI - Chest Pain General Chief Complaint: Chest Pain Stated Complaint: CP Time Seen by Provider: 01/02/22 15:11 Source: patient and family Mode of arrival: EMS Limitations: no limitations History of Present Illness HPI narrative: Patient is a 36-year-old female with a past medical history of anxiety, celiac, chronic diarrhea presenting for worsening symptoms. Patient states she was worked up in the [place] ED 2 days ago due to elevated high blood pressure. Patient states that she started developing symptoms while in the emergency department 2 days ago. She endorses over the past 2 days feelings of chest tig htness, pleuritic chest pain on the left-sided of the chest, swellings of the hands feet, palpitations, sharp pain at the back of the neck that radiates to the top of the head, diarrhea, blurry vision, and a history of a 10 lb weight loss in a few months. The at this time denies the chest pain. Patient also endorses that she has been experiencing episodes in which she feels like her heart rate gets slower and then suddenly speeds up and she starts feeling palpitations; ?it feels like my heart is going to pop out of my chest. Family history significant for a father that of a sudden myocardial infarction at the age of 42. Substance use hx: Patient endorses vaping, denies use any other substance use. Of note patient came in via ambulance and was given nitro and aspirin prior to a rrival with no effect. MD complaint: chest pain and chest discomfort Onset (ago): day(s) (2) Timing of current episode: episodic and increasing Prior episodes: No Onset: during rest and during exertion Pain location: left chest Pain radiation: none Severity: moderate Quality: tightness, aching, heaviness and sharp (When taking a big deep breath and) Exacerbating factors: inspiration Associated symptoms: palpitations Treatment prior to arrival: aspirin and nitroglycerin Related Data Previous Rx's Medication Instructions Recorded hydrochlorothiazide 12.5 mg tablet 12.5 mg PO DAILY #30 tabs 12/31/21 Allergies Allergy/AdvReac Type Severity Reaction Status Date / Time morphine [MORPHINE] Allergy Intermediate NAUSEA & Verified 01/02/22 13:27 VOMITING, Violently ill Review of Systems Review of Systems: Constitutional : + Weight loss, No Fever, No Chills, No Night Sweats, + Fatigue, + Malaise ENT/Mouth : No Hearing loss, No Ear Pain, No Nasal Congestion, No Sinus Pain, No Hoarseness, No sore throat, No Rhinorrhea, No Swallowing Difficulty Eyes: No Eye Pain, No Swelling, No Redness, No Foreign Body, No Discharge, No Vision Changes Cardiovascular : + Chest Pain, + SOB, + Dyspnea on Exertion, No Orthopnea, No Edema, + Palpitations Respiratory : No Cough, No Sputum, No Wheezing, No Smoke Exposure, No Dyspnea Gastrointestinal : No Nausea, No Vomiting, + Diarrhea, No Constipation, + abdominal Pain, No Hematochezia, No Melena Genitourinary : no irregular bleeding, No Dysuria, No Urinary Frequency, No Hematuria, No Urinary Incontinence, No Urgency, No Flank Pain, No Urinary Flow Changes, No Hesitancy Musculoskeletal : No joint pain, + Myalgias, No Joint Swelling Skin : No Skin Lesions, No rash+ Neuro : No Weakness, No Numbness, No Paresthesias, No Loss of Consciousness, No Dizziness, No Headache Psych : + Anxiety/Panic, No Depression, Heme/Lymph: No Bruising, No Bleeding,No Lymphadenopathy Yes all other systems are reviewed and are negative [facility] Past Medical History Attestation statement: The following information was validated with the patient. Source: old records reviewed and nursing notes reviewed Medical History Bile salt-induced diarrhea Celiac disease Chronic superficial gastritis Elevated liver enzymes Generalized anxiety disorder Tachycardia Surgical History H/O section H/O LEEP History of appendectomy Hx of cholecystectomy Family History Family History Father Acute myocardial infarction Social History Social History Household Members Other:: Three children, recently single Alcohol intake: never Patient Tobacco Use Status: Never used Tobacco Smoked in Last 30 Days: No Use of substances other than those prescribed or required for medical reasons: Yes Substance Use Type: Marijuana Advance Directives: No Advance Directives Information Provided: No Patient : No Physical Exam Vital Signs: Vital Signs: Last Vital Signs Temp 97.6 F 01/02/22 19:01 Pulse 91 01/02/22 19:01 Resp 17 01/02/22 19:01 BP 122/89 01/02/22 19:01 Pulse Ox 98 01/02/22 19:01 O2 Del Method 01/02/22 19:01 BMI result Body Mass Index 18.5 vital signs have been reviewed as normal and appeared to be correct. Blood pressure hypertensive l39/106. Heart rate 116. Respiration rate normal. Temperature normal. Oxygen saturation normal. Appearance: Alert. Oriented X3. No acute distress. Head: Normal external exam. Normocephalic. Atraumatic. Eyes: PERRLA. EOMI. Conjunctiva and sclera normal. Eyelids normal. ENT: Pharynx normal. Uvula midline. Moist mucous membranes. No lesions/ulcerations or masses noted on the tongue. Normal voice. No trismus noted. No drooling noted. No muffled voice noted. Neck: Normal inspection. Neck supple. FROM. No adenopathy.No tracheal deviation noted. No crepitus is noted. No meningeal signs. No neck mass noted. No signs of trauma noted. CVS: Normal heart rate and rhythm (90s). Heart sound normal. Pulses normal throughout. No murmurs/rales/gallops. Respiratory: No respiratory distress. Painless inspiration. Breath sounds normal. No wheezes/rales/rhonchi noted. Chest nontender. No crepitus is noted. No accessory muscle usage noted or decreased air movement noted. No signs of trauma. Abdomen: Soft. Tender to left mid abdomen. Nondistended. No guarding. No rigidity. Bowel sounds normal in all 4 quadrants. No distention noted. No organomegaly noted. No visible injury noted. No rebound tenderness. Negative Rovsing sign. Negative obturator's sign. Negative psoas sign. Negative Mattson sign. Surgical scars consistent with a laparoscopic gallbladder removal noted. Back: No CVA tenderness. Full range of motion noted. Nontender. No signs of trauma. Patient neuro intact bilaterally and distally on all 4 extremities. Patient's reflexes intact bilaterally and distally on all 4 extremities. No rashes/lesion/induration/fluctuance or signs of infection noted. Skin: Skin warm and dry. Normal skin color. Normal skin turgor. No rashes/lesions/lacerations noted. Extremities: No lower extremity edema. No calf tenderness is noted. Extremities exhibit normal range of motion and nontender. Neuro: Oriented X 3. No motor deficit. No sensory deficit. Reflexes normal. Normal steady gait. No focal neuro deficits noted. CN's II-XII intact bilaterally? Vascular: +2 radial pulses/+ 2 distal pedal pulses/+2 dorsalis pedis b/l. Normal cap refill. No cyanosis noted to upper extremity nails and lower extremity toes nails. Course Course Course Narrative: 15:40pm - Patient is a 36-year-old female with a past medical history of anxiety, celiac disease, elevated liver enzymes presenting after worsening symptoms. Patient presented to the emergency department 2 days ago for new onset of hypertensive urgency. Patient developed multiple symptoms including chest pain, diarrhea, blurry vision, pleuritic chest pain, neck pain, palpitations. Family history of sudden cardiac - father at 42 due to an SD. Patient was worked up for hypertension on 12/31/21. This is when her symptoms started. A CTA of the chest, thyroid, and routine lab testing or relatively unremarkable. Patient was discharged home with hydrochlorothiazide for blood pressure. Of note patient was given nitro and aspirin via EMS. Patient reported that this had no effect on her chest pain. Plan: - labs: CBC, BMP, creatinine kinase, hCG, lipase, liver panel - chest x-ray - continuous cardiac monitoring - CT of the abdomen and pelvis with contrast, CT of the head/brain without IV contrast - Lyme panel, tick borne illness panel Reevaluation(s) Reevaluation #1: CBC: MCHC (36.5). Other lab values are within normal limits. Chem: Carbon dioxide (17); BUN (17); ALT (35); troponin 1 hour (19.4); total protein (8.1) -elevated BUN is likely due to dehydration. Troponin will be repeated at 3 hours Beta hCG <2 UA: No signs of infection, 15 ketones, no protein, no blood, no glucose. Lyme/tick panel still pending Time: 19:20 Reevaluation #2: - Troponin 1 hour (19.4) 3 hour troponin increased to (31). therefore doubled. - Patient re-evaluated. While in the room patient was tachycardic around 110; during evaluation patient supervising librarian showed sinus tachycardia though p atient experienced a few PVCs. Patient reports she felt the PVCs. Patient's prior rate then decreased to the high 80s/ low 90s. At the end of the exam the patient's blood pressure was noted to be 122/89 (this is a decrease from 139/106) and a heart rate of 91. -Cardiology consulted and Dr. Torres recommended to admit the patient due to that increased troponin. They also recommended to order a tick panel, blood cultures, ESR, CRP. If patient continues to fluctuate between sinus tachycardia and sinus rhythm to give metoprolol. - Lorazepam 1 mg PO given once for anxiety - Plan will be to admit at this time. Time: 19:52 MDM - Chest Pain Medical Records Data Attestation: I reviewed the patient's medical records. Lab Data Attestation: I reviewed the patient's lab results. Result diagrams: 01/02/22 15:07 01/02/22 15:07 Labs: Lab Results 01/02/22 01/02/22 01/02/22 Range/Units 15:07 15:07 15:07 WBC 9.2 (4.8-10.8) X10*3/uL RBC 5.13 (4.20-5.50) X10*6/uL Hgb 15.6 (12.0-16.0) g/dl Hct 42.7 (37.0-47.0) % MCV 83.2 (80.0-98.0) fL MCH 30.4 (27.0-33.0) pg MCHC 36.5 H (31.0-35.0) g/dl RDW 12.8 (11.0-16.0) % Plt Count 309 (160-400) X10*3/uL MPV 10.6 (9.4-12.3) fL Immature Gran % (Auto) 0.3 (0.0-0.4) % Neut % (Auto) 49.0 (45-73) % Lymph % (Auto) 39.5 (20-40) % [place] % (Auto) 9.0 (2-11) % Eos % (Auto) 1.2 (0-4) % Baso % (Auto) 1.0 (0-2) % Lymph # (Auto) 3.7 (1.2-4.9) X10*3/uL [place] # (Auto) 0.8 (0.1-1.2) X10*3/uL Eos # (Auto) 0.1 (0.0-0.4) X10*3/uL Baso # (Auto) 0.1 (0.0-0.2) X10*3/uL Abs Immat Gran (auto) 0.03 (0.00-0.03) X10*3/uL Absolute Neuts (auto) 4.5 (2.0-8.3) x10*3/uL Absolute Nucleated RBC 0.000 (0.0-0.012) X10*3/uL Nucleated RBC % (auto) 0.0 (0.0-0.2) /100WBC Sodium 136 (135-145) mmol/L Potassium 3.8 (3.3-5.1) mmol/L Chloride 103 (96-108) mmol/L Carbon Dioxide 17 L (22-29) mmol/L Anion Gap 20 (12-20) BUN 17 H D (9-16) mg/dL Creatinine 0.77 (0.5-1.4) mg/dL Estim Creat Clear Calc 70.0 Estimated GFR > 60 Random Glucose 92 (60-115) mg/dL Calcium 10.1 (8.4-10.2) mg/dL Magnesium 1.8 (1.6-2.6) mg/dL Total Bilirubin 1.0 (0.0-1.0) mg/dL Direct Bilirubin 0.3 (0.0-0.5) mg/dL AST 30 D (5-31) U/L ALT 35 H (0-31) U/L Alkaline Phosphatase 100 D (39-117) U/L Total Creatine Kinase 74 (26-140) U/L Troponin I High Sens 19.4 H D (<3.5-17.0) ng/L C-Reactive Protein 0.23 (< or = 0.50) mg/dL Total Protein 8.1 H (6.5-8.0) g/dL Albumin 4.9 (3.5-5.0) g/dL Lipase 16 (8-78) U/L Beta HCG, Quant < 2 mIU/mL Urine Color Urine Appearance Urine pH (5.0-9.0) Ur Specific [place] (1.005-1.025) Urine Protein (Neg-Trace) mg/dL Urine Glucose (UA) (Negative) mg/dL Urine Ketones (Negative) mg/dL Urine Blood (Negative) Urine Nitrite (Negative) Ur Leukocyte Esterase (Negative) Urine Test (NEGATIVE) COVID-19 (DAVID) (Negative) COVID-19 Clin Com 01/02/22 01/02/22 01/02/22 Range/Units 18:05 18:14 18:14 WBC (4.8-10.8) X10*3/uL RBC (4.20-5.50) X10*6/uL Hgb (12.0-16.0) g/dl Hct (37.0-47.0) % MCV (80.0-98.0) fL MCH (27.0-33.0) pg MCHC (31.0-35.0) g/dl RDW (11.0-16.0) % Plt Count (160-400) X10*3/uL MPV (9.4-12.3) fL Immature Gran % (Auto) (0.0-0.4) % Neut % (Auto) (45-73) % Lymph % (Auto) (20-40) % [place] % (Auto) (2-11) % Eos % (Auto) (0-4) % Baso % (Auto) (0-2) % Lymph # (Auto) (1.2-4.9) X10*3/uL [place] # (Auto) (0.1-1.2) X10*3/uL Eos # (Auto) (0.0-0.4) X10*3/uL Baso # (Auto) (0.0-0.2) X10*3/uL Abs Immat Gran (auto) (0.00-0.03) X10*3/uL Absolute Neuts (auto) (2.0-8.3) x10*3/uL Absolute Nucleated RBC (0.0-0.012) X10*3/uL Nucleated RBC % (auto) (0.0-0.2) /100WBC Sodium (135-145) mmol/L Potassium (3.3-5.1) mmol/L Chloride (96-108) mmol/L Carbon Dioxide (22-29) mmol/L Anion Gap (12-20) BUN (9-16) mg/dL Creatinine (0.5-1.4) mg/dL Estim Creat Clear Calc Estimated GFR Random Glucose (60-115) mg/dL Calcium (8.4-10.2) mg/dL Magnesium (1.6-2.6) mg/dL Total Bilirubin (0.0-1.0) mg/dL Direct Bilirubin (0.0-0.5) mg/dL AST (5-31) U/L ALT (0-31) U/L Alkaline Phosphatase (39-117) U/L Total Creatine Kinase (26-140) U/L Troponin I High Sens 31.0 H D (<3.5-17.0) ng/L C-Reactive Protein (< or = 0.50) mg/dL Total Protein (6.5-8.0) g/dL Albumin (3.5-5.0) g/dL Lipase (8-78) U/L Beta HCG, Quant mIU/mL Urine Color Yellow Urine Appearance Clear Urine pH 6.5 (5.0-9.0) Ur Specific [place] >= 1.030 H (1.005-1.025) Urine Protein Negative (Neg-Trace) mg/dL Urine Glucose (UA) Negative (Negative) mg/dL Urine Ketones 15 (Negative) mg/dL Urine Blood Negative (Negative) Urine Nitrite Negative (Negative) Ur Leukocyte Esterase Negative (Negative) Urine Test NEGATIVE (NEGATIVE) COVID-19 (DAVID) (Negative) COVID-19 Clin Com 01/02/22 Range/Units 19:45 WBC (4.8-10.8) X10*3/uL RBC (4.20-5.50) X10*6/uL Hgb (12.0-16.0) g/dl Hct (37.0-47.0) % MCV (80.0-98.0) fL MCH (27.0-33.0) pg MCHC (31.0-35.0) g/dl RDW (11.0-16.0) % Plt Count (160-400) X10*3/uL MPV (9.4-12.3) fL Immature Gran % (Auto) (0.0-0.4) % Neut % (Auto) (45-73) % Lymph % (Auto) (20-40) % [place] % (Auto) (2-11) % Eos % (Auto) (0-4) % Baso % (Auto) (0-2) % Lymph # (Auto) (1.2-4.9) X10*3/uL [place] # (Auto) (0.1-1.2) X10*3/uL Eos # (Auto) (0.0-0.4) X10*3/uL Baso # (Auto) (0.0-0.2) X10*3/uL Abs Immat Gran (auto) (0.00-0.03) X10*3/uL Absolute Neuts (auto) (2.0-8.3) x10*3/uL Absolute Nucleated RBC (0.0-0.012) X10*3/uL Nucleated RBC % (auto) (0.0-0.2) /100WBC Sodium (135-145) mmol/L Potassium (3.3-5.1) mmol/L Chloride (96-108) mmol/L Carbon Dioxide (22-29) mmol/L Anion Gap (12-20) BUN (9-16) mg/dL Creatinine (0.5-1.4) mg/dL Estim Creat Clear Calc Estimated GFR Random Glucose (60-115) mg/dL Calcium (8.4-10.2) mg/dL Magnesium (1.6-2.6) mg/dL Total Bilirubin (0.0-1.0) mg/dL Direct Bilirubin (0.0-0.5) mg/dL AST (5-31) U/L ALT (0-31) U/L Alkaline Phosphatase (39-117) U/L Total Creatine Kinase (26-140) U/L Troponin I High Sens (<3.5-17.0) ng/L C-Reactive Protein (< or = 0.50) mg/dL Total Protein (6.5-8.0) g/dL Albumin (3.5-5.0) g/dL Lipase (8-78) U/L Beta HCG, Quant mIU/mL Urine Color Urine Appearance Urine pH (5.0-9.0) Ur Specific [place] (1.005-1.025) Urine Protein (Neg-Trace) mg/dL Urine Glucose (UA) (Negative) mg/dL Urine Ketones (Negative) mg/dL Urine Blood (Negative) Urine Nitrite (Negative) Ur Leukocyte Esterase (Negative) Urine Test (NEGATIVE) COVID-19 (DAVID) Negative (Negative) COVID-19 Clin Com See Note Imaging Data CT scan - head: Attestation: I personally reviewed and interpreted this imaging study as follows: Radiologist's impression: FINDINGS: No intra or extra-axial fluid collection or hemorrhage, mass or mass effect. Sulci and ventricles normal. Calvarium intact. ? CT/CT head/brain wo IV con IMPRESSION: No acute intracranial pathology. CT scan - abdomen: Attestation: I personally reviewed and interpreted this imaging study as follows: Radiologist's impression: FINDINGS: LUNG BASES: The visualized lung bases are unremarkable.? LIVER, GALLBLADDER, AND BILIARY TREE: The liver is normal in size, shape, and attenuation. No focal hepatic lesion or biliary ductal dilatation is present. The gallbladder is absent.? PANCREAS: Unremarkable.? SPLEEN: Unremarkable.? ADRENAL GLANDS: Unremarkable.? KIDNEYS AND URETERS: The kidneys are normal in size, shape, and attenuation. No hydronephrosis, hydroureter, or calculi seen. No perinephric stranding. ? BLADDER: Unremarkable.? GASTROINTESTINAL TRACT: Suture material is seen at the base of the cecum. The appendix is not identified. The colon is stool-filled. There is no bowel obstruction or right or left lower quadrant inflammatory change.? ABDOMINAL WALL: There is a small fat-containing umbilical hernia. Bowel does not participate.? LYMPH NODES: Normal. VASCULAR: Unremarkable. PELVIC VISCERA: The right ovary contains several cysts measuring up to 15 mm likely physiologic. Uterus and left adnexa unremarkable.? OSSEOUS STRUCTURES: Unremarkable.? CT/CT abdomen pelvis w IV con IMPRESSION: Right ovarian cyst likely physiologic. No bowel obstruction. There is no acute findings in the left mid abdomen as questioned. No hydronephrosis.? ? Fleischner guidelines were followed. Chest x-ray: Attestation: I personally reviewed and interpreted this imaging study as follows: Radiologist's impression: FINDINGS: The cardiac and mediastinal contours are normal. The lungs are well inflated. The lungs are clear. There is no pleural effusion or pneumothorax. Bony structures are unremarkable. XR/XR chest 1V IMPRESSION: Well-inflated lungs. No evidence for acute disease in the [facility] ECG Data ECG #1: Attestation: I personally reviewed and interpreted this ECG as follows: ECG interpretation date: 01/02/22 ECG interpretation time: 19:30 Prior ECG tracings: available for review Interpretation: Sinus tachycardia with ventricular rate of 124. Rate atrial enlargement. Right axis. When compared with EKG 12-31-2021: Premature ventricular complexes are no longer present. Critical Care Time Critical Care Time Critical Care Time: Yes Total Critical Care Time: 60 Attestation: I personally attest to this time spent taking care of the patient Discharge Plan Discharge Clinical Impression: Chest pain, Elevated troponin Patient Disposition: Admitted As Inpatient
[2022-01-02 15:40] LABS: Alanine Aminotransferase 35 U/L (0-31); Albumin Level 4.9 g/dL (3.5-5.0); Alkaline Phosphatase 100 U/L (39-117); Anion Gap 20 (12-20); Aspartate Amino Transferase 30 U/L (5-31); Bilirubin Direct 0.3 mg/dL (0.0-0.5); Blood Urea Nitrogen 17 mg/dL (9-16); Calcium 10.1 mg/dL (8.4-10.2); Carbon Dioxide 17 mmol/L (22-29); Chloride 103 mmol/L (96-108); Estimated Glomerular Filt Rate > 60; Glucose Random 92 mg/dL (60-115); Lipase 16 U/L (8-78); Magnesium 1.8 mg/dL (1.6-2.6); Potassium 3.8 mmol/L (3.3-5.1); Sodium 136 mmol/L (135-145); Total Protein 8.1 g/dL (6.5-8.0)
[2022-01-02 15:47] LABS: HCG Quantitative < 2 mIU/mL
[2022-01-02 15:48] LABS: Troponin-I High Sensitivity 19.4 ng/L (<3.5-17.0)
[2022-01-02] MEDS: iohexoL 350 MG/ML 100 ML INFUS..BTL IV (16:27)
[2022-01-02 18:23] LABS: Appearance Urine Clear; Color Urine Yellow; Glucose Urine UA Negative (Negative); Leukocyte Esterase Urine Negative (Negative); Nitrite Urine Negative (Negative); PH 6.5 (5.0-9.0); Specific Gravity - Urine >= 1.030 (1.005-1.025); Urine Blood Negative (Negative); Urine Ketones 15 mg/dL (Negative); Urine Protein Negative (Neg-Trace)
[2022-01-02 18:24] LABS: UPreg QC Valid YES; Urine Pregnancy NEGATIVE (NEGATIVE)
--- NOTE | 2022-01-02 19:47 | PC.NURSE ---
HR at rest NSR 80s-90s with intermittent PVCs, however at times HR randomly elevates to sinus tachycardia 120s-140. ED providers bedside to take recording so cardiology can see.
[2022-01-02 19:53] LABS: C Reactive Protein 0.23 mg/dL (< or = 0.50)
[2022-01-02 20:09] LABS: COVID-19 Test Negative (Negative); IDNOW Serial# 55D5AD1C
[2022-01-02] MEDS: LORazepam 1 MG TABLET PO (20:22)
--- NOTE | 2022-01-02 20:57 | P.HPHOSP_ITS ---
History of Present Illness Date of Service: 01/02/22 Attending physician on admission: Daniel Gillette Chief Complaint: chest pain, palpitations 36-year-old female with recent diagnosis of hypertension started on hydrochlorothiazide 2 days ago, anxiety, celiac disease, and chronic diarrhea presenting for evaluation. She was seen in the ED 2 days ago after being found to have elevated blood pressures with SBP up to 200 in her PCP office well getting refill for her OCP. There has been sharp left-sided pleuritic chest pain without radiation with associated lightheadedness, palpitations, diaphoresis. States she wears a watch that measures are heart rate and heart rate would elevate for short periods up to 140 before returning to normal. States these episodes last for several minutes before spontaneously resolving. States the chest pain does worsen with deep inspiration and occurs both at rest and on exertion. Currently reporting 2/10 chest pain. Also reporting 10 pound w eight loss over several months. She did arrive to the ED via EMS and received both aspirin and nitroglycerin which did not improve her pain. On arrival initial troponin was 19.4 with repeat troponin of 30.1. EKG showed sinus tachycardia with rate of 124 with rightward access. No ST/T-wave abnormality. Head CT, CT of the abdomen/pelvis, and chest x-ray largely unremarkable except for physiologic right ovarian cyst. CT of the chest ruled out pulmonary embolism 2 days ago at her ED visit. On telemetry she has had brief periods of tachycardia to the 140s with resolution to baseline of high 80s, low 90s. Case was discussed with cardiology who is recommending admission with further lab evaluation for tick-borne illness, inflammatory markers. Review of Systems Review of Systems: General: No fevers, malaise, + unintentional 10 lb weight loss HEENT: No blurred vision, diplopia Cardiovascular: +chest pain, +palpitations, + diaphoresis. No leg edema Respiratory: No shortness of breath, wheezing, cough GI: No abdominal pain, nausea, vomiting, diarrhea, constipation, melena, hematochezia gu: No dysuria, hematuria, increased urinary frequency Neuro: No headaches, weakness, paresthesias Psych: Denies anxiety Skin: No rashes or lesions [facility] Medical History Bile salt-induced diarrhea Celiac disease Chronic superficial gastritis Elevated liver enzymes Generalized anxiety disorder Tachycardia Family History (Updated 01/02/22 @ 21:16 by AURELIO Martin) Father Acute myocardial infarction Maternal Grandmother Ovarian cancer Maternal Grandfather Cirrhosis Surgical History H/O section H/O LEEP History of appendectomy Hx of cholecystectomy Social History Household Members Other:: Three children, recently single Alcohol intake: never Patient Tobacco Use Status: Never used Tobacco Smoked in Last 30 Days: No Use of substances other than those prescribed or required for medical reasons: Yes Substance Use Type: Marijuana Advance Directives: No Advance Directives Information Provided: No Patient : No Meds Allergies Allergy/AdvReac Type Severity Reaction Status Date / Time morphine [MORPHINE] Allergy Intermediate NAUSEA & Verified 01/02/22 13:27 VOMITING, Violently ill Active Medications: Current Medications Pharmacy Consult (Consult Rx Perform Med Rec) 1 each MISCELLANE ONCE STA Stop: 01/02/22 20:15 Physical Exam Vital Signs and Narrative: Vital Signs: Last Vital Signs Temp 97.6 F 01/02/22 19:01 Pulse 91 01/02/22 19:01 Resp 17 01/02/22 19:01 BP 122/89 01/02/22 19:01 Pulse Ox 98 01/02/22 19:01 O2 Del Method 01/02/22 19:01 BMI result Body Mass Index 18.5 Constitutional - Awake and Alert, No apparent distress Eyes - PERRLA, EOMI Neck- supple, thyroid is not enlarged and is symmetric without palpable nodules Cardiovascular - S1S2, regular rate with PAC's and PVC's ausculated., No edema Chest-no reproducible tenderness to palpation Respiratory - Normal lung expansion, Normal respiratory effort, No respiratory distress, CTA bilaterally Gastrointestinal - left upper quadrant tenderness to palpation without guarding or rebound. ND; +BS - No CVA tenderness Extremities - no calf tenderness bilaterally, no swelling Skin - Warm/Dry Neurological - Alert & oriented x3, CN II-XII intact. 5/5 strength bilateral upper and lower extremities, sensation intact Psychological - Appropriate affect Results Labs CBC and Chem 7: 01/02/22 15:07 01/02/22 15:07 Labs: Laboratory Results - last 24 hr 01/02/22 01/02/22 01/02/22 15:07 15:07 15:07 MCV 83.2 MCH 30.4 MCHC 36.5 H RDW 12.8 Plt Count 309 MPV 10.6 Immature Gran % (Auto) 0.3 Neut % (Auto) 49.0 Lymph % (Auto) 39.5 [place] % (Auto) 9.0 Eos % (Auto) 1.2 Baso % (Auto) 1.0 Lymph # (Auto) 3.7 [place] # (Auto) 0.8 Eos # (Auto) 0.1 Baso # (Auto) 0.1 Abs Immat Gran (auto) 0.03 Absolute Neuts (auto) 4.5 Absolute Nucleated RBC 0.000 Nucleated RBC % (auto) 0.0 Anion Gap 20 Estim Creat Clear Calc 70.0 Estimated GFR > 60 Random Glucose 92 Calcium 10.1 Magnesium 1.8 Total Bilirubin 1.0 Direct Bilirubin 0.3 AST 30 D ALT 35 H Alkaline Phosphatase 100 D Total Creatine Kinase 74 Troponin I High Sens 19.4 H D C-Reactive Protein 0.23 Total Protein 8.1 H Albumin 4.9 Lipase 16 Beta HCG, Quant < 2 Urine Color Urine Appearance Urine pH Ur Specific [place] Urine Protein Urine Glucose (UA) Urine Ketones Urine Blood Urine Nitrite Ur Leukocyte Esterase Urine Test COVID-19 (DAVID) COVID-19 Clin Com 01/02/22 01/02/22 01/02/22 18:05 18:14 18:14 MCV MCH MCHC RDW Plt Count MPV Immature Gran % (Auto) Neut % (Auto) Lymph % (Auto) [place] % (Auto) Eos % (Auto) Baso % (Auto) Lymph # (Auto) [place] # (Auto) Eos # (Auto) Baso # (Auto) Abs Immat Gran (auto) Absolute Neuts (auto) Absolute Nucleated RBC Nucleated RBC % (auto) Anion Gap Estim Creat Clear Calc Estimated GFR Random Glucose Calcium Magnesium Total Bilirubin Direct Bilirubin AST ALT Alkaline Phosphatase Total Creatine Kinase Troponin I High Sens 31.0 H D C-Reactive Protein Total Protein Albumin Lipase Beta HCG, Quant Urine Color Yellow Urine Appearance Clear Urine pH 6.5 Ur Specific [place] >= 1.030 H Urine Protein Negative Urine Glucose (UA) Negative Urine Ketones 15 Urine Blood Negative Urine Nitrite Negative Ur Leukocyte Esterase Negative Urine Test NEGATIVE COVID-19 (DAVID) COVID-19 Clin Com 01/02/22 19:45 MCV MCH MCHC RDW Plt Count MPV Immature Gran % (Auto) Neut % (Auto) Lymph % (Auto) [place] % (Auto) Eos % (Auto) Baso % (Auto) Lymph # (Auto) [place] # (Auto) Eos # (Auto) Baso # (Auto) Abs Immat Gran (auto) Absolute Neuts (auto) Absolute Nucleated RBC Nucleated RBC % (auto) Anion Gap Estim Creat Clear Calc Estimated GFR Random Glucose Calcium Magnesium Total Bilirubin Direct Bilirubin AST ALT Alkaline Phosphatase Total Creatine Kinase Troponin I High Sens C-Reactive Protein Total Protein Albumin Lipase Beta HCG, Quant Urine Color Urine Appearance Urine pH Ur Specific [place] Urine Protein Urine Glucose (UA) Urine Ketones Urine Blood Urine Nitrite Ur Leukocyte Esterase Urine Test COVID-19 (DAVID) Negative COVID-19 Clin Com See Note Imaging Radiologist's Impressions: Impressions Chest X-Ray 01/02/22 15:37 IMPRESSION: Well-inflated lungs. No evidence for acute disease in the chest. Abdomen/Pelvis CT 01/02/22 16:27 IMPRESSION: Right ovarian cyst likely physiologic. No bowel obstruction. There is no acute findings in the left mid abdomen as questioned. No hydronephrosis. Fleischner guidelines were followed. Head CT 01/02/22 16:27 IMPRESSION: No acute intracranial pathology. Assessment and Plan (1) Chest pain: Status: Acute (2) Elevated troponin: Status: Acute (3) Tachycardia: Status: Acute Plan 36-year-old female with recent diagnosis of hypertension started on hydrochlorothiazide 2 days ago, anxiety, celiac disease, and chronic diarrhea admitted for atypical chest pain with palpitations and elevated troponins of unclear etiology. # atypical chest pain with elevated troponins and palpitations -unclear etiology at this time. Unlikely to be ACS. -CTA chest negative for PE on 12/31. CXR negative. EKG showing sinus tachycardia without ST/T-wave abnormality. HR up to 150 on telemetry, unsusta ined -received aspirin and nitroglycerin from EMS without improvement in symptoms -initial troponin 19.4 increased to 31.0 on repeat -admit to telemetry -repeat troponin a.m. -echocardiogram ordered -cardiology consulted -tick panel and inflammatory markers pending -TSH on 12/31 0.98. Free T4 added on. Vitamin D ordered #HTN- controlled -Hold HCTZ at this time DVT prophylaxis-Lovenox Full code Patient requires inpatient stay of at least 2 midnights due to elevated troponins of unclear etiology with chest pain and palpitations requiring further monitoring and evaluation. Quality Stroke Does the patient have a stroke diagnosis?: No VTE Prior VTE?: No VTE Risk Level:: Medical - moderate - high VTE Device Contraindication: Treatment Not Indicated VTE Drug Contraindication: N/A - Med Ordered
[2022-01-02 21:08] LABS: Erythrocyte Sedimentation Rate 3 MM/HR (0-20)
[2022-01-02] MEDS: Enoxaparin Sodium 40 MG/0.4 ML SYRINGE SUBCUT (21:12)
--- NOTE | 2022-01-02 21:36 | PHA.MEDREC ---
Pharmacy Consult ? Medication Reconciliation Pharmacy has completed the medication reconciliation. SPOKE WITH PT, ONLY TAKES THE ONE MED
[2022-01-02 21:49] LABS: Free T4 (Free Thyroxine) 1.69 ng/dL (0.71-1.85); Vitamin D 25-OH Total 31.8 ng/mL (>30)
--- NOTE | 2022-01-02 23:25 | PC.NURSE ---
report given to medicare sales representative Jake. patient to travel with tele box
[2022-01-03] VITALS: BP 147/92; PULSE 72; RESP 16; TEMP 36.4; O2SAT 99
[2022-01-03] MEDS: 0.9 % Sodium Chloride Flush 3 ML SYRINGE IVFLUSH ×4 (03:39→22:29)
[2022-01-03 03:49] VITALS: BP 140/82; PULSE 65; RESP 16; TEMP 36.6; O2SAT 99
[2022-01-03 06:13] LABS: Troponin-I High Sensitivity 11.3 ng/L (<3.5-17.0)
[2022-01-03 07:53] VITALS: BP 138/96; PULSE 93; RESP 17; TEMP 36.7; O2SAT 98
--- NOTE | 2022-01-03 10:00 | CA_ITS ---
Transthoracic Echocardiogram Patient (Last, First, Middle): Dyana Doan, Gender: Female Date of : 1985 Age: 36 Procedure Date: 01/03/2022 Procedure Type: Transthoracic Echocardiogram Location: S3E Height: 152.4 cm Weight: 44. kg BSA: 1.37 m2 Heart Rate: 109 bpm BP: 138 / 96 mmHg Manager Customer Service: SB Referring MD: Amber CAREY Symptoms: chest pain, palpitations, elevated trop Study Quality: Adequate ECG Rhythm: Tachycardia Conclusions: - The left ventricular systolic function is mildly decreased. The calculated ejection fraction is 51% by biplane method. - The basal inferoseptal and basal anteroseptal segments are hypokinetic. - No obvious valvular pathology seen on this study. Findings Procedure Information Contrast agent, definity, is being given per protocol without apparent complications. Left Ventricle Normal left ventricular cavity size. There is normal left ventricular wall thickness. The left ventricular systolic function is mildly decreased. The calculated ejection fraction is 51% by biplane method. There is evidence of regional wall motion abnormalities. Diastolic function is normal for age. Wall Motion Rest Echo Findings The basal inferoseptal and basal anteroseptal segments are hypokinetic. Right Ventricle Normal right ventricular cavity size. There is low normal right ventricular systolic function. Atria Both atria are normal in size. Aortic Valve The aortic valve was not well visualized. There is no aortic valve stenosis. There is no aortic valve regurgitation. Mitral Valve The mitral valve appears normal. There is no mitral valve regurgitation. There is no mitral valve stenosis. Pulmonic Valve The pulmonic valve is likely normal. Tricuspid Valve Normal tricuspid valve structure. There is trace tricuspid valve regurgitation. There is no evidence of pulmonary hypertension. Great Vessels The aorta was not well visualized. The aortic annulus is normal in size. Venous The inferior vena cava is normal in size and collapses greater than 50% with inspiration. Pericardium/Pleural There is no evidence of pericardial effusion. Prior Study Comparison Changes noted compared to prior study dated: 04/28/2016. LVEF slightly lower. Recommendations, Care & Conclusions No obvious valvular pathology seen on this study. Measurements 2D Linear Measurements IVSd: 0.60 0.6-0.9/0.6-1.0 cm LVIDd: 3.85 3.9-5.3/4.2-5.9 cm LVIDd Index: 2.81 2.4-3.2/2.2-3.1 cm/m2 LVIDs: 2.85 2.0-3.6 cm LVPWd: 0.55 0.7-1.1 cm LA Diam: 2.20 2.7-3.8/3.0-4.0 cm LAIDs Index: 1.61 1.5-2.3 cm/m2 LV Mass: 70.57 67-162/88-224 g LV Mass Index: 51.51 43-95/49-115 g/m2 LVOT Diam: 1.70 3.0+(-)1.3 cm 2D Systolic Function EF 4C: 47.60 >55% EF 2C: 50.90 >55% EF BiP: 50.80 >55% Mitral Valve MV Pk E: 0.72 MV PK A: 0.73 MV Decel Time: 246.00 E/A: 1.00 E'Lateral: 6.42 E'Medial: 5.44 E/E' Med: 13.20 E/E' Lat: 11.20 PHT: 72.00 MVA PHT: 3.06 Decel [place]: 2.91 Aortic Valve AoV Pk [place]: 1.18 AoV Mn [place]: 0.89 AoV VTI: 0.16 AoV Pk Grad: 6.00 Aov Mn Grad: 3.00 LACIE Cont.VTI: 1.72 LVOT LVOT Pk [place]: 0.97 LVOT Mn [place]: 0.71 LVOT VTI: 0.12 LVOT Pk Grad: 4.00 LVOT Mn Grad: 2.00 LVOT Diam: 1.70 LVOT Area: 2.27 Diastolic Function MV Pk E: 0.72 MV Pk A: 0.73 E/A: 1.00 E'Medial: 5.44 E/E' Med: 13.20 E' Laterial: 6.42 E/E' Lat: 11.20 Right Ventricle TAPSE (mm): 16.00 TVS' [place]: 13.90 Tricuspid Valve TR Pk [place]: 1.89 TR Pk Grad: 14.00 RA Press: 3.00 RVSP: 17.00 Great Vessels Aorta Sinus of Valsalva: 3.00 2.0-3.5 cm Pulmonary Valve PV Pk [place]: 0.92 Peak PV Grad: 3.00 Updated in Other Vendor System with Status of Final Matthias Torres MD electronically signed on 01/03/2022 1:40:25 PM with status of Final
--- NOTE | 2022-01-03 11:20 | P.CONCA_ITS ---
History of Present Illness History of Present Illness Date of Service: 01/03/22 Chief complaint: Atypical chest pain, elevated troponins, tachycard Narrative: This is a cardiology consultation regarding elevated troponins and chest pain. Patient does not have any known cardiac problems. History of anxiety, celiac disease. Recently thought to have hypertension and start hydrochlorothiazide. She states that she has not been feeling good for the last 3 days or so. She is having pain all across the chest as well as across the abdomen. Has been somewhat persistent with waxing and waning features over the last 3 days. When she feels the discomfort, like a tightness. Whenever she takes a deep breath, it gets worse. Other times, present but much less. Her son who is 5 years old had anymore knee a few days ago. Hence not clear if it is infected or not. So far, workup has been fairly unremarkable except for slightly increased troponins. Today, she feels slightly better but not back to normal. No known cardiac issues in the past. No drug use. The last few days, she states that she has lost almost 10 lb or so. Review of Systems Review of Systems: Yes all other systems are reviewed and are negative Constitutional: Constitutional: Reports as per HPI Eyes: Eyes: Reports as per HPI ENT: Reports as per HPI Cardiovascular: Cardiovascular: Reports as per HPI, Denies acrocyanosis, Denies cool extremities, Reports chest pain, Denies leg edema, Denies lightheadedness, Reports palpitations and Reports dyspnea Respiratory: Respiratory: Reports as per HPI, Reports no additional respiratory complaints and Reports dyspnea Gastrointestinal: Gastrointestinal: Reports as per HPI and Reports no a dditional gastrointestinal complaints Genitourinary: Genitourinary: Reports as per HPI Musculoskeletal: Musculoskeletal: Reports no additional musculoskeletal complaints and Reports as per HPI Integumentary/Breasts: Skin/Breast: Reports system reviewed and no additional complaints, except as docu Neurologic: Reports system reviewed and no additional complaints, except as documented and Reports as per HPI Psychiatric: Psychiatric: Reports no additional psychiatric complaints and Reports as per HPI Endocrine: Endocrine: Reports no additional endocrine complaints, Reports as per HPI and Reports palpitations Hematologic/Lymphatic: Hematologic/Lymphatic: Reports no additional hematologic/lymphatic complaints and Reports as per HPI Allergic/Immunologic: Allergic/Immunologic: Reports no additional allergic/immunologic complaints and Reports as per HPI [facility] Past Medical History Medical History Bile salt-induced diarrhea Celiac disease Chronic superficial gastritis Elevated liver enzymes Generalized anxiety disorder Tachycardia Family History Family History (Updated 01/02/22 @ 21:16 by AURELIO Martin) Father Acute myocardial infarction Maternal Grandmother Ovarian cancer Maternal Grandfather Cirrhosis Surgical History Surgical History H/O section H/O LEEP History of appendectomy Hx of cholecystectomy Social History Social History (Updated 01/03/22 @ 11:29 by Matthias Torres MD) Household Members: Family Household Members Other:: Three children, recently single Housing: House Alcohol intake: never Patient Tobacco Use Status: Never used Tobacco Non Cigarette Tobacco use how long: Vaping+ Substance Use Type: Marijuana Meds Allergies Allergy/AdvReac Type Severity Reaction Status Date / Time morphine [MORPHINE] Allergy Intermediate NAUSEA & Verified 01/02/22 13:27 VOMITING, Violently ill Active Medications: Current Medications Acetaminophen (Acetaminophen 325 Mg Tablet) 650 mg PO Q6H PRN PRN Reason: Pain, Mild,headache Docusate Sodium (Docusate Sodium 100 Mg Capsule) 100 mg PO DAILY PRN PRN Reason: Constipation Enoxaparin Sodium (Enoxaparin Sodium 40 Mg/0.4 Ml Syringe) 40 mg SUBCUT Q24H [facility] Last Admin: 01/02/22 21:12 Dose: 40 mg Ondansetron HCl (Ondansetron Hcl 4 Mg/2 Ml Vial) 4 mg IVPUSH Q8H PRN PRN Reason: Nausea and Vomiting Sodium Chloride (0.9 % Sodium Chloride Flush 3 Ml Syringe) 3 ml IVFLUSH QSHIFT [facility] Last Admin: 01/03/22 03:39 Dose: 3 ml Physical Exam Vital Signs: Vital Signs: Last Vital Signs Temp 98.1 F 01/03/22 07:53 Pulse 93 01/03/22 07:53 Resp 17 01/03/22 07:53 BP 138/96 H 01/03/22 07:53 Pulse Ox 98 01/03/22 07:53 O2 Del Method 01/03/22 07:53 BMI result Body Mass Index 18.5 Const: General: comfortable and no acute distress Orientation/consciousn ess: patient oriented x3 HEENT: Other: Unremarkable Head: Yes normal to inspection Neck: Neck: Yes normal visual inspection Chest: Chest palpation & inspection: normal inspection of the chest Resp: Auscultation: clear to auscultation bilaterally Cardio: Palpation: normal PMI Heart sounds: S1 normal heart sound present, S2 normal heart sound present, no gallops, no murmurs and no rubs GI: Palpation (GI): Soft to palpation Back/Spine/Pelvis: Other: unremarkable Skin: General skin exam: no rashes or lesions noted Neuro: General: patient oriented x3 Extrem: General: Yes normal to inspection Psych: Mental Status: mental status grossly normal Objective Labs and Meds Result diagrams: 01/02/22 15:07 01/02/22 15:07 Lab results: Laboratory Results - last 24 hr 01/02/22 01/02/22 01/02/22 15:07 15:07 15:07 WBC 9.2 RBC 5.13 Hgb 15.6 Hct 42.7 MCV 83.2 MCH 30.4 MCHC 36.5 H RDW 12.8 Plt Count 309 MPV 10.6 Immature Gran % (Auto) 0.3 Neut % (Auto) 49.0 Lymph % (Auto) 39.5 [place] % (Auto) 9.0 Eos % (Auto) 1.2 Baso % (Auto) 1.0 Lymph # (Auto) 3.7 [place] # (Auto) 0.8 Eos # (Auto) 0.1 Baso # (Auto) 0.1 Abs Immat Gran (auto) 0.03 Absolute Neuts (auto) 4.5 Absolute Nucleated RBC 0.000 Nucleated RBC % (auto) 0.0 ESR Sodium 136 Potassium 3.8 Chloride 103 Carbon Dioxide 17 L Anion Gap 20 BUN 17 H D Creatinine 0.77 Estim Creat Clear Calc 70.0 Estimated GFR > 60 Random Glucose 92 Calcium 10.1 Magnesium 1.8 Total Bilirubin 1.0 Direct Bilirubin 0.3 AST 30 D ALT 35 H Alkaline Phosphatase 100 D Total Creatine Kinase 74 Troponin I High Sens 19.4 H D C-Reactive Protein 0.23 Total Protein 8.1 H Albumin 4.9 Lipase 16 25-OH Vitamin D Total 31.8 Free T4 1.69 Beta HCG, Quant < 2 Urine Color Urine Appearance Urine pH Ur Specific [place] Urine Protein Urine Glucose (UA) Urine Ketones Urine Blood Urine Nitrite Ur Leukocyte Esterase Urine Test COVID-19 (DAVID) COVID-19 [employer] 01/02/22 01/02/22 01/02/22 15:07 18:05 18:14 WBC RBC Hgb Hct MCV MCH MCHC RDW Plt Count MPV Immature Gran % (Auto) Neut % (Auto) Lymph % (Auto) [place] % (Auto) Eos % (Auto) Baso % (Auto) Lymph # (Auto) [place] # (Auto) Eos # (Auto) Baso # (Auto) Abs Immat Gran (auto) Absolute Neuts (auto) Absolute Nucleated RBC Nucleated RBC % (auto) ESR 3 Sodium Potassium Chloride Carbon Dioxide Anion Gap BUN Creatinine Estim Creat Clear Calc Estimated GFR Random Glucose Calcium Magnesium Total Bilirubin Direct Bilirubin AST ALT Alkaline Phosphatase Total Creatine Kinase Troponin I High Sens 31.0 H D C-Reactive Protein Total Protein Albumin Lipase 25-OH Vitamin D Total Free T4 Beta HCG, Quant Urine Color Yellow Urine Appearance Clear Urine pH 6.5 Ur Specific [place] >= 1.030 H Urine Protein Negative Urine Glucose (UA) Negative Urine Ketones 15 Urine Blood Negative Urine Nitrite Negative Ur Leukocyte Esterase Negative Urine Test COVID-19 (DAVID) COVID-[employer] 01/02/22 01/02/22 01/03/22 18:14 19:45 05:43 WBC RBC Hgb Hct MCV MCH MCHC RDW Plt Count MPV Immature Gran % (Auto) Neut % (Auto) Lymph % (Auto) [place] % (Auto) Eos % (Auto) Baso % (Auto) Lymph # (Auto) [place] # (Auto) Eos # (Auto) Baso # (Auto) Abs Immat Gran (auto) Absolute Neuts (auto) Absolute Nucleated RBC Nucleated RBC % (auto) ESR Sodium Potassium Chloride Carbon Dioxide Anion Gap BUN Creatinine Estim Creat Clear Calc Estimated GFR Random Glucose Calcium Magnesium Total Bilirubin Direct Bilirubin AST ALT Alkaline Phosphatase Total Creatine Kinase Troponin I High Sens 11.3 D C-Reactive Protein Total Protein Albumin Lipase 25-OH Vitamin D Total Free T4 Beta HCG, Quant Urine Color Urine Appearance Urine pH Ur Specific [place] Urine Protein Urine Glucose (UA) Urine Ketones Urine Blood Urine Nitrite Ur Leukocyte Esterase Urine Test NEGATIVE COVID-19 (DAVID) Negative COVID-19 [employer] See Note ECG Interpretation: EKG shows sinus tachycardia, 124/Min; right atrial enlargement; rightward axis, normal DC and corrected QT. these are somewhat chronic. Imaging Radiologist's impression: Impressions Chest X-Ray 01/02/22 15:37 IMPRESSION: Well-inflated lungs. No evidence for acute disease in the chest. Abdomen/Pelvis CT 01/02/22 16:27 IMPRESSION: Right ovarian cyst likely physiologic. No bowel obstruction. There is no acute findings in the left mid abdomen as questioned. No hydronephrosis. Fleischner guidelines were followed. Head CT 01/02/22 16:27 IMPRESSION: No acute intracranial pathology. Assessment and Plan (1) Chest pain: Status: Acute (2) Elevated troponin: Status: Acute (3) Essential hypertension: Status: Acute Plan CBCs unremarkable. ESR normal. CRP is normal. Renal function within normal limits. LFT show very slight elevation with an ALT of 35. With regard troponins, initial level is less than 3.5 on the 12th of this month. Subsequently, went up to 19, 31 and now back to normal. Normal lipase. Thyroid is normal. Beta hCG is also normal. Head CT shows no acute pathology. Abdomen/pelvis CT shows right ovarian cyst. No acute findings. Chest CTA from the shows no pulmonary embolism. No airspace disease significance. Cardiac findings also unremarkable. Overall, pleuritic-type chest pain, borderline troponin elevation, son with alma delia hightower. Imaging has been so far unremarkable. Will review the echocardiogram. Could be mild myocarditis. With regard to blood pressure, not clear if he truly has undiagnosed hypertension. In 2020, her blood pressures were mostly okay. Will need to be followed rather as an outpatient. Plan pending echocardiogram findings. Discussed with . Procedures Date of Service Date of Service: 01/03/22
[2022-01-03 11:31] VITALS: BP 129/91; PULSE 98; RESP 18; TEMP 37; O2SAT 98
--- NOTE | 2022-01-03 14:21 | P.PNIM_ITS ---
Subjective Subjective Date of Service: 01/03/22 Interval History: Complaining of dull mid chest pain worse with deep breathing, denies palpitations, no shortness of breath, denies fever chills, no headache, no dizziness, no recurrent episode of sharp chest pain, tolerating diet no nausea no vomiting no abdominal pain. Review of Systems [employer] no headache no dizziness Skin no rash Musculoskeletal no joint pain Review of Systems: Yes all other systems are reviewed and are negative Physical Exam Vital Signs: Vital Signs: Last Vital Signs Temp 98.6 F 01/03/22 11:31 Pulse 98 01/03/22 11:31 Resp 18 01/03/22 11:31 BP 129/91 H 01/03/22 11:31 Pulse Ox 98 01/03/22 11:31 O2 Del Method 01/03/22 11:31 BMI result Body Mass Index 18.5 Const: Other: General alert oriented x3, resting comfortably, in no acute distress. Anicteric sclera Neck supple no JVD. CVS regular rate rhythm, No anterior chest wall tenderness to palpation Respiratory lungs clear to auscultation, no respiratory distress, no wheeze, no rhonchi. Gastrointestinal abdomen soft, nontender, bowel sounds audible Extremities no edema. Neuro nonfocal Skin no rash Psych appropriate affect Objective Data Active Medications Acetaminophen (Acetaminophen 325 Mg Tablet) 650 mg PO Q6H PRN PRN Reason: Pain, Mild,headache Docusate Sodium (Docusate Sodium 100 Mg Capsule) 100 mg PO DAILY PRN PRN Reason: Constipation Enoxaparin Sodium (Enoxaparin Sodium 40 Mg/0.4 Ml Syringe) 40 mg SUBCUT Q24H [facility] Last Admin: 01/02/22 21:12 Dose: 40 mg Documented By: TRU Ondansetron HCl (Ondansetron Hcl 4 Mg/2 Ml Vial) 4 mg IVPUSH Q8H PRN PRN Reason: Nausea and Vomiting Sodium Chloride (0.9 % Sodium Chloride Flush 3 Ml Syringe) 3 ml IVFLUSH QSHIFT [facility] Last Admin: 01/03/22 11:28 Dose: 3 ml Documented By: GISELA Labs CBC & Chem 7: 01/02/22 15:07 01/02/22 15:07 Labs: Laboratory Results - last 24 hr 01/02/22 01/02/22 01/02/22 15:07 15:07 15:07 MCV 83.2 MCH 30.4 MCHC 36.5 H RDW 12.8 Plt Count 309 MPV 10.6 Immature Gran % (Auto) 0.3 Neut % (Auto) 49.0 Lymph % (Auto) 39.5 [place] % (Auto) 9.0 Eos % (Auto) 1.2 Baso % (Auto) 1.0 Lymph # (Auto) 3.7 [place] # (Auto) 0.8 Eos # (Auto) 0.1 Baso # (Auto) 0.1 Abs Immat Gran (auto) 0.03 Absolute Neuts (auto) 4.5 Absolute Nucleated RBC 0.000 Nucleated RBC % (auto) 0.0 ESR Anion Gap 20 Estim Creat Clear Calc 70.0 Estimated GFR > 60 Random Glucose 92 Calcium 10.1 Magnesium 1.8 Total Bilirubin 1.0 Direct Bilirubin 0.3 AST 30 D ALT 35 H Alkaline Phosphatase 100 D Total Creatine Kinase 74 Troponin I High Sens 19.4 H D C-Reactive Protein 0.23 Total Protein 8.1 H Albumin 4.9 Lipase 16 25-OH Vitamin D Total 31.8 Free T4 1.69 Beta HCG, Quant < 2 Urine Color Urine Appearance Urine pH Ur Specific [place] Urine Protein Urine Glucose (UA) Urine Ketones Urine Blood Urine Nitrite Ur Leukocyte Esterase Urine Test COVID-19 (DAVID) COVID-19 Clin [facility] 01/02/22 01/02/22 01/02/22 15:07 18:05 18:14 MCV MCH MCHC RDW Plt Count MPV Immature Gran % (Auto) Neut % (Auto) Lymph % (Auto) [place] % (Auto) Eos % (Auto) Baso % (Auto) Lymph # (Auto) [place] # (Auto) Eos # (Auto) Baso # (Auto) Abs Immat Gran (auto) Absolute Neuts (auto) Absolute Nucleated RBC Nucleated RBC % (auto) ESR 3 Anion Gap Estim Creat Clear Calc Estimated GFR Random Glucose Calcium Magnesium Total Bilirubin Direct Bilirubin AST ALT Alkaline Phosphatase Total Creatine Kinase Troponin I High Sens 31.0 H D C-Reactive Protein Total Protein Albumin Lipase 25-OH Vitamin D Total Free T4 Beta HCG, Quant Urine Color Yellow Urine Appearance Clear Urine pH 6.5 Ur Specific [place] >= 1.030 H Urine Protein Negative Urine Glucose (UA) Negative Urine Ketones 15 Urine Blood Negative Urine Nitrite Negative Ur Leukocyte Esterase Negative Urine Test COVID-19 (DAVID) COVID-19 Clin Com 01/02/22 01/02/22 01/03/22 18:14 19:45 05:43 MCV MCH MCHC RDW Plt Count MPV Immature Gran % (Auto) Neut % (Auto) Lymph % (Auto) [place] % (Auto) Eos % (Auto) Baso % (Auto) Lymph # (Auto) [place] # (Auto) Eos # (Auto) Baso # (Auto) Abs Immat Gran (auto) Absolute Neuts (auto) Absolute Nucleated RBC Nucleated RBC % (auto) ESR Anion Gap Estim Creat Clear Calc Estimated GFR Random Glucose Calcium Magnesium Total Bilirubin Direct Bilirubin AST ALT Alkaline Phosphatase Total Creatine Kinase Troponin I High Sens 11.3 D C-Reactive Protein Total Protein Albumin Lipase 25-OH Vitamin D Total Free T4 Beta HCG, Quant Urine Color Urine Appearance Urine pH Ur Specific [place] Urine Protein Urine Glucose (UA) Urine Ketones Urine Blood Urine Nitrite Ur Leukocyte Esterase Urine Test NEGATIVE COVID-19 (DAVID) Negative COVID-19 [facility] See Note Assessment and Plan (1) Chest pain: Status: Acute (2) Elevated troponin: Status: Acute (3) Tachycardia: Status: Acute Plan 36-year-old female with recent diagnosis of hypertension started on hydrochloro thiazide 2 days ago, anxiety, celiac disease, and chronic diarrhea admitted for atypical chest pain with palpitations and elevated troponins of unclear etiology. # atypical chest pain with elevated troponins and palpitations -complaining of persistent mid chest dull pain worse with deep breathing of unclear etiology, patient's son recently had pneumonia with coughing and shortness of breath Troponin flat, CTA chest negative for PE on 12/31.? CXR negative.? EKG showing sinus tachycardia without ST/T-wave abnormality. HR up to 150 on telemetry, unsustained -received aspirin and nitroglycerin from EMS without improvement in symptoms -initial troponin 19.4 increased to 31.0 on repeat -tick panel, and inflammatory markers pending -TSH on 12/31 0.98. Free T4 1.[address] Torres patient echo showed low EF with wall motion abnormality question myopericarditis but ESR and CRP are normal he recommend low-dose beta-chelsey 25 mg b.i.d. and NSAIDs will continue tele monitor #HTN- controlled hold BP medications, was recently started on hydrochlorothiazide on 12/31 in the emergency room for elevated blood pressure - DVT prophylaxis-Lovenox Full code Patient requires continued inpatient stay due to tachycardia and further workup for persistent chest pain. Quality Stroke Does the patient have a stroke diagnosis?: No VTE Prior VTE?: No VTE Risk Level:: Medical - moderate - high VTE Device Contraindication: Treatment Not Indicated VTE Drug Contraindication: N/A - Med Ordered
--- NOTE | 2022-01-03 14:34 | MHC.CM.PN ---
CM MET WITH PT AND MOTHER. LIVES WITH MOTHER IN A SINGLE FAMILY HOUSE. NO SERVICES OR DME. NO HCP AND DECLINES TO FILL ONE OUT AT THIS TIME. NO SERVICES ANTICIPATED. NO COVID VAX. PCP DR. CHIN AT [facility] [place]. MOTHER WILL TRANSPORT HOME AT [place].
[2022-01-03] MEDS: Ibuprofen 600 MG TABLET PO ×2 (15:14→22:28)
[2022-01-03] MEDS: Colchicine 0.6 MG TABLET PO (15:14)
[2022-01-03] MEDS: Metoprolol Tartrate 25 MG TABLET PO ×2 (15:15→21:06)
[2022-01-03 15:27] VITALS: BP 123/82; PULSE 90; RESP 18; TEMP 36.1; O2SAT 98
[2022-01-03 19:29] VITALS: BP 128/82; PULSE 74; RESP 18; TEMP 36.3; O2SAT 98
[2022-01-03] MEDS: Enoxaparin Sodium 40 MG/0.4 ML SYRINGE SUBCUT (21:05)
[2022-01-04] VITALS (7 sets, daily range): BP systolic 122–139; BP diastolic 65–93; PULSE 60–86; RESP 16–18; TEMP 36–36.6; O2SAT 98–100
[2022-01-04] MEDS: Omeprazole 20 MG CAPSULE.DR PO (06:03)
[2022-01-04] MEDS: Ibuprofen 600 MG TABLET PO ×3 (06:04→21:59)
[2022-01-04] MEDS: Metoprolol Tartrate 25 MG TABLET PO ×2 (10:03→21:59)
[2022-01-04] MEDS: 0.9 % Sodium Chloride Flush 3 ML SYRINGE IVFLUSH ×3 (10:04→22:01)
[2022-01-04] MEDS: Colchicine 0.6 MG TABLET PO (10:04)
--- NOTE | 2022-01-04 10:32 | PM.PNCARD ---
Subjective Subjective Date of Service: 01/04/22 Interval history: She states she still has some nonspecific chest pressure and sensations of feeling dizzy. Review of Systems Review of Systems Yes all other systems are reviewed and are negative Constitutional: Reports as per HPI Eyes: Reports as per HPI Reports as per HPI Cardiovascular: Reports as per HPI, Denies acrocyanosis, Denies cool extremities, Reports chest pain, Denies leg edema, Reports lightheadedness, Denies palpitations and Denies dyspnea Respiratory: Reports as per HPI, Reports no additional respiratory complaints and Denies dyspnea Gastrointestinal: Reports as per HPI and Reports no additional gastrointestinal complaints Genitourinary: Reports as per HPI Musculoskeletal: Reports no additional musculoskeletal complaints and Reports as per HPI Skin/Breast: Reports system reviewed and no additional complaints, except as docu Reports system reviewed and no additional complaints, except as documented and Reports as per HPI Psychiatric: Reports no additional psychiatric complaints and Reports as per HPI Endocrine: Reports no additional endocrine complaints, Reports as per HPI and Denies palpitations Hematologic/Lymphatic: Reports no additional hematologic/lymphatic complaints and Reports as per HPI Allergic/Immunologic: Reports no additional allergic/immunologic complaints and Reports as per HPI Physical Exam Vital Signs: Last Vital Signs Temp 97.9 F 01/04/22 08:00 Pulse 71 01/04/22 08:00 Resp 17 01/04/22 08:00 BP 139/93 H 01/04/22 08:00 Pulse Ox 100 01/04/22 08:00 O2 Del Method 01/04/22 08:00 BMI result Body Mass Index 18.5 Const General: comfortable and no acute distress Orientation/consciousness: patient oriented x3 HEENT Other: Unremarkable Head: Yes normal to inspection Neck Neck: Yes normal visual inspection Chest Chest palpation & inspection: normal inspection of the chest Resp Auscultation: clear to auscultation bilaterally Cardio Palpation: normal PMI Heart sounds: S1 normal heart sound present, S2 normal heart sound present, no gallops, no murmurs and no rubs GI Palpation (GI): Soft to palpation Back/Spine/Pelvis Other: unremarkable Skin General skin exam: no rashes or lesions noted Neuro General: patient oriented x3 Extrem General: Yes normal to inspection Psych Mental Status: mental status grossly normal Objective Labs and Meds Result diagrams: 01/02/22 15:07 01/02/22 15:07 Progress Note: A&P Assessment and plan (1) Chest pain: Status: Acute (2) Elevated troponin: Status: Acute (3) Essential hypertension: Status: Acute (4) Myocarditis: Status: Acute Plan CBCs unremarkable. ESR normal. CRP is normal. Renal function within normal limits. LFT show very slight elevation with an ALT of 35. With regard troponins, initial level is less than 3.5 on the 12th of this month. Subsequently, went up to 19, 31 and now back to normal. Normal lipase. Thyroid is normal. Beta hCG is also normal. Head CT shows no acute pathology. Abdomen/pelvis CT shows right ovarian cyst. No acute findings. Chest CTA from the 12th shows no pulmonary embolism. No airspace disease significance. Cardiac findings also unremarkable. Echocardiogram with LVEF of 51%. Basal inferior septal/anteroseptal hypokinesis. Overall, probable myocarditis, viral etiology. Should improve spontaneously. Okay to keep her on NSAIDs/colchicine for the pericarditis type pain she has. Otherwise, with regard to hypertension, okay to keep on beta-blockers. She also has some tachycardia and that should help both. Time Spent With Patient Time: Total time spent is greater than 50% in coordination of care (as documented) at patient's floor/unit and/or counseling patient: 25min. Progress Note: Quality Stroke Does the patient have a stroke diagnosis?: No Procedures Date of Service Date of Service: 01/04/22
--- NOTE | 2022-01-04 12:42 | P.PNIM_ITS ---
Subjective Subjective Date of Service: 01/04/22 Interval History: C/o intermittent palpitations + chest pain No fever Review of Systems Review of Systems: Yes all other systems are reviewed and are negative Physical Exam Vital Signs: Vital Signs: Last Vital Signs Temp 97.9 F 01/04/22 08:00 Pulse 71 01/04/22 08:00 Resp 17 01/04/22 08:00 BP 139/93 H 01/04/22 08:00 Pulse Ox 100 01/04/22 08:00 O2 Del Method 01/04/22 08:00 BMI result Body Mass Index 18.5 Gen: in no acute distress HEENT: sclera anicteric, moist mucus membranes Neck: supple Lungs: clear to auscultation bilaterally Heart: regular rate and rhythm, no murmurs Abd: soft, non-tender, non-distended Ext: no edema Skin: warm/well-perfused Neuro: alert and oriented x3, no focal findings Psych: appropriate affect Objective Data Active Medications Acetaminophen (Acetaminophen 325 Mg Tablet) 650 mg PO Q6H PRN PRN Reason: Pain, Mild,headache Colchicine (Colchicine 0.6 Mg Tablet) 0.6 mg PO DAILY [facility] Last Admin: 01/04/22 10:04 Dose: 0.6 mg Documented By: GISELA Docusate Sodium (Docusate Sodium 100 Mg Capsule) 100 mg PO DAILY PRN PRN Reason: Constipation Enoxaparin Sodium (Enoxaparin Sodium 40 Mg/0.4 Ml Syringe) 40 mg SUBCUT Q24H [facility] Last Admin: 01/03/22 21:05 Dose: 40 mg Documented By: MIGUEL A Ibuprofen (Ibuprofen 600 Mg Tablet) 600 mg PO Q8H [facility] Last Admin: 01/04/22 06:04 Dose: 600 mg Documented By: MIGUEL A Metoprolol Tartrate (Metoprolol Tartrate 25 Mg Tablet) 25 mg PO BID [facility]; Protocol Last Admin: 01/04/22 10:03 Dose: 25 mg Documented By: GISELA Omeprazole (Omeprazole 20 Mg Capsule.) 20 mg PO DAILY@0630 [facility] Last Admin: 01/04/22 06:03 Dose: 20 mg Documented By: MIGUEL A Ondansetron HCl (Ondansetron Hcl 4 Mg/2 Ml Vial) 4 mg IVPUSH Q8H PRN PRN Reason: Nausea and Vomiting Sodium Chloride (0.9 % Sodium Chloride Flush 3 Ml Syringe) 3 ml IVFLUSH QSHIFT EPIFANIO Last Admin: 01/04/22 10:04 Dose: 3 ml Documented By: GISELA Labs CBC & Chem 7: 01/02/22 15:07 01/02/22 15:07 Labs: TTE 01/03/22 - The left ventricular systolic function is mildly decreased.? ? The calculated ejection fraction is 51% by biplane method. ? ? ? - The basal inferoseptal and basal anteroseptal segments are ? ? hypokinetic. ? - No obvious valvular pathology seen on this study.? Assessment and Plan (1) Chest pain: Status: Acute (2) Elevated troponin: Status: Acute (3) Tachycardia: Status: Acute Plan d#3 36yo F recently diagnosed with HTN + started on HCTZ 2d prior to admission, anxiety, celiac disease, chronic diarrhea admitted for atypical chest pain- found to have mildly elevated Tn-I and WMAs on TTE # atypical chest pain - per Cardiology most consistent with myocarditis, likely viral - tickborne panel PCR pending - continue ibuprofen, colchicine, metoprolol - outpt Cardiology f/u # HTN - continue metoprolol # VTE ppx: LMWH In my clinical judgment, the patient requires continued hospitalization for the following reasons: tachycardia and further workup for persistent chest pain Quality Stroke Does the patient have a stroke diagnosis?: No VTE Prior VTE?: No VTE Risk Level:: Medical - moderate - high VTE Device Contraindication: Treatment Not Indicated VTE Drug Contraindication: N/A - Med Ordered
[2022-01-04] MEDS: Enoxaparin Sodium 40 MG/0.4 ML SYRINGE SUBCUT (21:59)
[2022-01-05 03:19] VITALS: BP 126/81; PULSE 53; RESP 16; TEMP 36.1; O2SAT 99
[2022-01-05] MEDS: Omeprazole 20 MG CAPSULE.DR PO (06:00)
[2022-01-05] MEDS: Ibuprofen 600 MG TABLET PO (06:00)
[2022-01-05 06:53] VITALS: BP 117/71; PULSE 73; RESP 16; TEMP 35.5; O2SAT 98
[2022-01-05] MEDS: 0.9 % Sodium Chloride Flush 3 ML SYRINGE IVFLUSH (07:53)
[2022-01-05] MEDS: Metoprolol Tartrate 25 MG TABLET PO (07:54)
[2022-01-05] MEDS: Colchicine 0.6 MG TABLET PO (07:54)
--- NOTE | 2022-01-05 09:29 | PM.PNCARD ---
Subjective Subjective Date of Service: 01/05/22 Interval history: the patient was seen and examined at bedside. She still having chest discomfort when she ambulates. She originally presented with chest tightness. She ruled in for NSTEMI. Echocardiography has shown septal wall motion abnormalities. Strong family history of coronary disease and her dad at age 40 from [place]. Physical Exam Vital Signs: Last Vital Signs Temp 96 F L 01/05/22 06:53 Pulse 73 01/05/22 06:53 Resp 16 01/05/22 06:53 BP 117/71 01/05/22 06:53 Pulse Ox 98 01/05/22 06:53 O2 Del Method 01/05/22 06:53 BMI result Body Mass Index 18.5 GENERAL APPEARANCE: in no acute distress, pleasant. NECK: no carotid bruit, no jugular venous distention. SKIN: no suspicious lesions, warm and dry. HEART: no murmurs, regular rate and rhythm. LUNGS: clear to auscultation bilaterally. ABDOMEN: soft, nontender. EXTREMITIES: no edema. PERIPHERAL PULSES: equal. NEUROLOGIC: No gross deficits, AAO X 3 Objective Labs and Meds Result diagrams: 01/02/22 15:07 01/02/22 15:07 Progress Note: A&P Assessment and plan (1) NSTEMI (non-ST elevated myocardial infarction): Status: Acute Plan 36-year-old female with background history of hypertension and celiac disease who is presenting for chest discomfort and ruled in for NSTEMI. She also has been experiencing some palpitations and is most likely describing PVCs. No significant arrhythmia on telemetry. Her echocardiography has shown septal wall motion abnormality. I had a detailed discussion with her that given her presentation and recent viral illness in her son her presentation can be due to myocarditis. other possibilities are coronary will spasm or SCAD. She is quite concerned given her family history of myocardial infarction in her father at age 40. She had chest tightness when she presented. She has wall motion abnormality and has ruled in for NSTEMI. I would have expected a higher troponin level if this was truly myocarditis and wall motion abnormality as well due to that. In any case after long discussion with decided to do a diagnostic angiogram. She is not . Start her on heparin drip. Change ibuprofen to baby aspirin. Discussed with Hospital Medicine at [facility]. She has been accepted by the medicine team and will be transferred today. We will aim for cardiac catheterization tomorrow. This will likely be a femoral approach because she has very small radial arteries. Thank you for allowing me to participate in the care of your patient. Please feel free to contact me if you have any questions. Time Spent With Patient Time: Total time spent is greater than 50% in coordination of care (as documented) at patient's floor/unit and/or counseling patient: Progress Note: Quality Stroke Does the patient have a stroke diagnosis?: No Procedures Date of Service Date of Service: 01/05/22
--- NOTE | 2022-01-05 11:02 | PM.DS ---
DS: Providers Provider Date of Service: 01/05/22 Date of admission: 01/02/22 20:52 Primary care physician: Lexi Aldrich MD Consults: 01/02/22 19:56 Consult to Cardiology Stat Consulting Provider: Matthias Torres Reason for consultation: elevated trop and sinus tachy Has provider been notified: Yes DS: Diagnosis Discharge Diagnosis (1) NSTEMI (non-ST elevated myocardial infarction): Status: Acute (2) Myocarditis: Status: Acute (3) Chest pain: Status: Acute (4) Elevated troponin: Status: Acute DS: Summary Hospital Course Hospital Course: from admission H+P by hospitalists AURELIO Hobbs and MD Prachi Gillette, 01/02/22: This is a 36-year-old female with pertinent history of hypertension, generalized anxiety disorder presents to the emergency department for evaluation of chest pressure and palpitations.? Patient states it was left-sided, pressure-like, nonradiating, sudden in onset when she was standing and doing her work, lasted for couple of minutes, did not relieve with rest, did not worsen with exertion and self-resolved.? It was associated with palpitations.? Patient had 2 more episodes throughout the day lasting for couple of minutes.? No shortness of breath, orthopnea or PND.? States the pain does increase on deep inspiration.? No recent illness, cough, fever, chills.? Patient received nitroglycerin in the ER which did not cause any relief.? CTA was done 2 days ago which ruled out PE.? Cardiology was consulted from the ER who will evaluate the patient in a.m..? Noted elevated troponin, will trend.? Will admit the patient with cardiac monitoring for evaluation of atypical chest pain and intermittent palpitations/tachycardia.? Obtain echocardiogram... 36-year-old female with recent diagnosis of hypertension started on hydrochlorothiazide 2 days ago, anxiety, celiac disease, and chronic diarrhea presenting for evaluation.? She was seen in the ED 2 days ago after being found to have elevated blood pressures with SBP up to 200 in her PCP office well getting refill for her OCP.? There has been sharp left-sided pleuritic chest pain without radiation with associated lightheadedness, palpitations, diaphoresis.? States she wears a watch that measures are heart rate and heart rate would elevate for short periods up to 140 before returning to normal.? States these episodes last for several minutes before spontaneously resolving.? States the chest pain does worsen with deep inspiration and occurs both at rest and on exertion.? Currently reporting 2/10 chest pain. Also reporting 10 pound weight loss over several months. She did arrive to the ED via EMS and received both aspirin and nitroglycerin which did not improve her pain.? On arrival initial troponin was 19.4 with repeat troponin of 30.1.? EKG showed sinus tachycardia with rate of 124 with rightward access.? No ST/T-wave abnormality.? Head CT, CT of the abdomen/pelvis, and chest x-ray largely unremarkable except for physiologic right ovarian cyst.? CT of the chest ruled out pulmonary embolism 2 days ago at her ED visit.? On telemetry she has had brief periods of tachycardia to the 140s with resolution to baseline of high 80s, low 90s.? Case was discussed with cardiology who is recommending admission with further lab evaluation for tick-borne illness, inflammatory markers... 36yo F recently diagnosed with HTN + started on HCTZ 2d prior to admission, anxiety, celiac disease, chronic diarrhea. She was admitted for atypical chest pain and found to have mildly elevated Tn-I and wall motion abnormalities on TTE. Initial impression was of myocarditis and she was treated with ibuprofen and colchicne. For palpitations, she was placed on metoprolol tartrate. Given strong family history with her father passing away from an [place] at age 42, she was started on aspirin and heparin drip and transferred to [facility] for diagnostic cardiac catheterization. Time Spent with Patient Time attestation: Total time spent providing and/or coordinating discharge services: 40 Discharge coordination time: Greater than 30 minutes Quality: Safe Use of Opioids Does Pt have an Active Cancer Diagnosis on the Problem List?: No Quality: Stroke Does the patient have a stroke diagnosis?: No Physical Exam Vital Signs: Vital Signs: Last Vital Signs Temp 96 F L 01/05/22 06:53 Pulse 73 01/05/22 06:53 Resp 16 01/05/22 06:53 BP 117/71 01/05/22 06:53 Pulse Ox 98 01/05/22 06:53 O2 Del Method 01/05/22 06:53 BMI result Body Mass Index 18.5 Gen: in no acute distress HEENT: sclera anicteric, moist mucus membranes Neck: supple Lungs: clear to auscultation bilaterally Heart: regular rate and rhythm, no murmurs Abd: soft, non-tender, non-distended Ext: no edema Skin: warm/well-perfused Neuro: alert and oriented x3, no focal findings Psych: appropriate affect DS: Data Data Completed and Pending Completed studies during hospitalization [Text1]: Laboratory Tests 01/02/22 01/02/22 01/02/22 15:07 15:07 15:07 WBC 9.2 RBC 5.13 Hgb 15.6 Hct 42.7 MCV 83.2 MCH 30.4 MCHC 36.5 H RDW 12.8 Plt Count 309 MPV 10.6 Immature Gran % (Auto) 0.3 Neut % (Auto) 49.0 Lymph % (Auto) 39.5 Morton % (Auto) 9.0 Eos % (Auto) 1.2 Baso % (Auto) 1.0 Lymph # (Auto) 3.7 Morton # (Auto) 0.8 Eos # (Auto) 0.1 Baso # (Auto) 0.1 Abs Immat Gran (auto) 0.03 Absolute Neuts (auto) 4.5 Absolute Nucleated RBC 0.000 Nucleated RBC % (auto) 0.0 ESR Sodium 136 Potassium 3.8 Chloride 103 Carbon Dioxide 17 L Anion Gap 20 BUN 17 H D Creatinine 0.77 Estim Creat Clear Calc 70.0 Estimated GFR > 60 Random Glucose 92 Calcium 10.1 Magnesium 1.8 Total Bilirubin 1.0 Direct Bilirubin 0.3 AST 30 D ALT 35 H Alkaline Phosphatase 100 D Total Creatine Kinase 74 Troponin I High Sens 19.4 H D C-Reactive Protein 0.23 Total Protein 8.1 H Albumin 4.9 Lipase 16 25-OH Vitamin D Total 31.8 Free T4 1.69 Beta HCG, Quant < 2 Urine Color Urine Appearance Urine pH Ur Specific [place] Urine Protein Urine Glucose (UA) Urine Ketones Urine Blood Urine Nitrite Ur Leukocyte Esterase Urine Test COVID-19 (DAVID) COVID-19 Clin Com 01/02/22 01/02/22 01/02/22 15:07 18:05 18:14 WBC RBC Hgb Hct MCV MCH MCHC RDW Plt Count MPV Immature Gran % (Auto) Neut % (Auto) Lymph % (Auto) Morton % (Auto) Eos % (Auto) Baso % (Auto) Lymph # (Auto) Morton # (Auto) Eos # (Auto) Baso # (Auto) Abs Immat Gran (auto) Absolute Neuts (auto) Absolute Nucleated RBC Nucleated RBC % (auto) ESR 3 Sodium Potassium Chloride Carbon Dioxide Anion Gap BUN Creatinine Estim Creat Clear Calc Estimated GFR Random Glucose Calcium Magnesium Total Bilirubin Direct Bilirubin AST ALT Alkaline Phosphatase Total Creatine Kinase Troponin I High Sens 31.0 H D C-Reactive Protein Total Protein Albumin Lipase 25-OH Vitamin D Total Free T4 Beta HCG, Quant Urine Color Yellow Urine Appearance Clear Urine pH 6.5 Ur Specific [place] >= 1.030 H Urine Protein Negative Urine Glucose (UA) Negative Urine Ketones 15 Urine Blood Negative Urine Nitrite Negative Ur Leukocyte Esterase Negative Urine Test COVID-19 (DAVID) COVID-[employer] 01/02/22 01/02/22 01/03/22 18:14 19:45 05:43 WBC RBC Hgb Hct MCV MCH MCHC RDW Plt Count MPV Immature Gran % (Auto) Neut % (Auto) Lymph % (Auto) Morton % (Auto) Eos % (Auto) Baso % (Auto) Lymph # (Auto) Morton # (Auto) Eos # (Auto) Baso # (Auto) Abs Immat Gran (auto) Absolute Neuts (auto) Absolute Nucleated RBC Nucleated RBC % (auto) ESR Sodium Potassium Chloride Carbon Dioxide Anion Gap BUN Creatinine Estim Creat Clear Calc Estimated GFR Random Glucose Calcium Magnesium Total Bilirubin Direct Bilirubin AST ALT Alkaline Phosphatase Total Creatine Kinase Troponin I High Sens 11.3 D C-Reactive Protein Total Protein Albumin Lipase 25-OH Vitamin D Total Free T4 Beta HCG, Quant Urine Color Urine Appearance Urine pH Ur Specific [place] Urine Protein Urine Glucose (UA) Urine Ketones Urine Blood Urine Nitrite Ur Leukocyte Esterase Urine Test NEGATIVE COVID-19 (DAVID) Negative COVID-19 [employer] See Note Impressions Chest X-Ray 01/02/22 15:37 IMPRESSION: Well-inflated lungs. No evidence for acute disease in the chest. Abdomen/Pelvis CT 01/02/22 16:27 IMPRESSION: Right ovarian cyst likely physiologic. No bowel obstruction. There is no acute findings in the left mid abdomen as questioned. No hydronephrosis. Fleischner guidelines were followed. Head CT 01/02/22 16:27 IMPRESSION: No acute intracranial pathology. TTE 01/03/22 - The left ventricular systolic function is mildly decreased.? ? The calculated ejection fraction is 51% by biplane method. ? ? ? - The basal inferoseptal and basal anteroseptal segments are ? ? hypokinetic. ? - No obvious valvular pathology seen on this study.? Discharge Plan Discharge Anticipated Discharge Date/Time: 01/05/22 10:57 Patient Disposition: Xfer [facility] Discharge Diagnosis: NSTEMI Referrals: Lexi Aldrich MD [Primary Care Provider] - 1 Week Matthias Torres MD [Physician] - 1 Week Discharge Medications: New heparin(porcine) in 0.45% NaCl 25,000 unit/250 mL Parenteral Solution 25,000 unit continuous IV infusion .Q0M Qty: 6000 0RF aspirin 81 mg Tablet,Chewable 81 mg PO DAILY Qty: 1 0RF colchicine [Colcrys] 0.6 mg Tablet 0.6 mg PO DAILY Qty: 1 0RF heparin (porcine) 5,000 unit/mL Solution 3,400 unit IVPUSH PROTOCOL BOLUS PRN (Reason: 80 Unit/Kg - Heparin Protocol) Qty: 1 0RF heparin (porcine) 5,000 unit/mL Solution 1,700 unit IVPUSH PROTOCOL BOLUS PRN (Reason: 40 unit/kg - Heparin Protocol) Qty: 1 0RF metoprolol tartrate 25 mg Tablet 25 mg PO BID Qty: 1 0RF Protocol: Hold for SBP/HR < HOLD for SBP < : 90 HOLD for HR < : 60 Discontinued hydrochlorothiazide 12.5 mg tablet 12.5 mg PO DAILY Qty: 30 3RF Discharge Orders: Discharge Order (Routine); Ordered 01/05/22 Ordered By: Maddison Veloz Diet: Advance to usual diet Activity on Discharge: As tolerated Stand Alone Forms: Patient Portal Discharge page Care Plan Goals: diagnosis of cardiac conditions Health Concerns: NSTEMI vs myocarditis Plan of Treatment: transfer to [facility] for diagnostic cardiac catheterization Assessment: See Discharge Summary.
--- NOTE | 2022-01-05 11:03 | MHC.CM.PN ---
PER PT WILL TRANSFER TO [facility] [place]
[2022-01-05 11:13] VITALS: BMI 18.4
[2022-01-05 11:14] VITALS: BP 142/90; PULSE 60; RESP 16; TEMP 36.2; O2SAT 99
[2022-01-05] MEDS: Heparin Sodium,Porcine/1/2NS 25,000 UNIT/250 ML IV.SOLN 5.17 UNIT IVCONT (11:24)
[2022-01-05 11:27] LABS: Prothrombin Time 11.6 SEC (10.0-13.1)
[2022-01-05 11:29] LABS: PTT Heparin Drip 33.6 SEC (53-77.9)
[2022-01-05 11:32] LABS: Hematocrit 47.9 % (37.0-47.0); Mean Corpuscular HGB Conc 33.4 g/dl (31.0-35.0); Mean Corpuscular Hemoglobin 28.4 pg (27.0-33.0); Mean Corpuscular Volume 85.1 fL (80.0-98.0); Mean Platelet Volume 11.1 fL (9.4-12.3); Platelet Count 326 X10*3/uL (160-400); Red Blood Count 5.63 X10*6/uL (4.20-5.50); White Blood Count 8.4 X10*3/uL (4.8-10.8)
[2022-01-05] MEDS: Aspirin 81 MG TAB.CHEW PO (11:32)
[2022-01-05] MEDS: Heparin Sodium,Porcine 5,000 UNIT/ML VIAL 3400 UNIT IVPUSH (11:42)
--- NOTE | 2022-01-05 12:18 | PC.NURSE ---
Addendum entered by Tanisha Mercado RN 01/05/22 14:11: imaging in radiology drop box. Report given to Denise GA at [facility]. Original Note: Patient resting in NAD, breathing is unlabored, Denies chest pain at rest. c/o of mild discomfort with ambulation. Heparin running per protocol. Patient is aware of plan to d/c to [facility] and agrees with this.
[2022-01-05 21:47] LABS: Lyme Abs Screen <0.90 index
[2022-01-07 20:46] LABS: A. Phagocytphilium DNA,RT-PCR NOT DETECTED (NOT DETECTED); Babesia Microti DNA, RT-PCR NOT DETECTED (NOT DETECTED); Borrelia Miyamotoi,DNA RT-PCR NOT DETECTED (NOT DETECTED); E.Chaffeensis DNA RT-PCR NOT DETECTED (NOT DETECTED); Lyme(Borrelia ssp)DNA RT-PCR NOT DETECTED (NOT DETECTED)
[2022-01-09 12:52] LABS: Source-Tick borne disease BLOOD
== END 2022-01-05 14:38 | disposition short-term general hospital (02) | DRG 190 ==
LOC: HO.ED 20:22 → HO.EDOVER 21:25 → HO.S3 22:48
PROVIDERS: Physician Assistant Medical; Admitting Provider Physician Assistant; Emergency Provider Student in an Organized Health Care Education/Training Program; PCP Internal Medicine; Visit Provider Family Medicine
DX: I21.4 Non-ST elevation (NSTEMI) myocardial infarction (principal); I51.4 Myocarditis, unspecified; F41.1 Generalized anxiety disorder; K90.0 Celiac disease; R00.0 Tachycardia, unspecified; I10 Essential (primary) hypertension; Z88.5 Allergy status to narcotic agent; Z20.822 Contact with and (suspected) exposure to COVID-19; Z79.899 Other long term (current) drug therapy
CPT/HCPCS: 36415; 70450; 71045; 74177; 80048; 80076; 81003; 81025; 82306; 82550; 83690; 83735; 84439; 84484; 84702; 85025; 85027; 85610; 85652; 85730; 86140; 86617; 86618; 87635; 87798; 87801; 93005; 93306; 99218; 99285; J1650; Q9957; Q9967

== ENCOUNTER → 2022-01-21 12:32 | Outpatient (BNVA) | payer OTHER, SELFPAY | PROVIDERS: PCP Internal Medicine; Visit Provider Nurse Practitioner Family | DX: I21.4 Non-ST elevation (NSTEMI) myocardial infarction (principal); R77.8 Other specified abnormalities of plasma proteins; I49.3 Ventricular premature depolarization; R00.2 Palpitations; Z98.890 Other specified postprocedural states | CPT/HCPCS: 99212 ==

== ENCOUNTER 2022-02-18 09:58 | Outpatient (REF) | payer OTHER, SELFPAY ==
[2022-02-18 11:28] LABS: Alanine Aminotransferase 25 U/L (0-31); Aspartate Amino Transferase 22 U/L (5-31); Cholesterol 193 mg/dL; HDL Cholesterol 33 mg/dL; LDL Cholesterol Calculated 149 mg/dl; Triglycerides 57 mg/dL
== END 2022-02-18 09:59 | disposition home or self-care (01) ==
LOC: HO.HMGCLDS 09:58
PROVIDERS: PCP Internal Medicine; Visit Provider Internal Medicine
DX: Z13.89 Encounter for screening for other disorder (principal)
CPT/HCPCS: 36415; 80061; 84450; 84460

== ENCOUNTER → 2022-02-18 15:03 | Outpatient (REF) | payer OTHER, SELFPAY ==
--- NOTE | 2022-02-18 15:07 | HM_ITS ---
Conclusion: 1. Patient was monitored for total period of 2 days and 23 hours 2. Baseline was normal sinus with average heart of 76 beats per minute 3. No significant pauses noted 4. Total of 9327 PVCs accounting for 2.9% total beats account for frequent PVCs 5. No patient reported events MTDD
== END ==
LOC: HO.CARD 15:03
PROVIDERS: PCP Internal Medicine; Visit Provider Nurse Practitioner Family
DX: I49.3 Ventricular premature depolarization (principal); R00.2 Palpitations
CPT/HCPCS: 36415; 80061; 84450; 84460; 93242

== ENCOUNTER → 2022-05-13 15:06 | Outpatient (BNVA) | payer OTHER, SELFPAY | PROVIDERS: PCP Internal Medicine; Referring Provider Internal Medicine; Visit Provider Internal Medicine | DX: I20.1 Angina pectoris with documented spasm (principal); I49.3 Ventricular premature depolarization; R00.0 Tachycardia, unspecified; Z79.82 Long term (current) use of aspirin; Z79.899 Other long term (current) drug therapy | CPT/HCPCS: 99212 ==

== ENCOUNTER → 2022-08-05 08:05 | Outpatient (REF) | payer OTHER, SELFPAY ==
--- NOTE | 2022-08-05 08:06 | CA_ITS ---
Transthoracic Echocardiogram Patient (Last, First, Middle): Dyana Doan, Gender: Female Date of : 1985 Age: 37 Procedure Date: 08/05/2022 Procedure Type: Transthoracic Echocardiogram Location: OP Height: 152.4 cm Weight: 45.36 kg BSA: 1.39 m2 Heart Rate: 67 bpm BP: 100 / 60 mmHg Spray Crew: SB Referring MD: Matthias Torres MD Symptoms: I20.1 - Angina pectoris with documented spasm Study Quality: Adequate ECG Rhythm: Sinus Conclusions: - The left ventricular systolic function is normal. The calculated ejection fraction is 66% by biplane method. - No obvious valvular pathology seen on this study. Findings Left Ventricle Normal left ventricular cavity size. There is normal left ventricular wall thickness. The left ventricular systolic function is normal. The calculated ejection fraction is 66% by biplane method. There is no evidence of regional wall motion abnormalities. Diastolic function is normal for age. Right Ventricle Normal right ventricular cavity size and systolic function. Atria Both atria are normal in size. Aortic Valve There is a normal trileaflet aortic valve. There is no aortic valve stenosis. There is no aortic valve regurgitation. Mitral Valve The mitral valve appears normal. There is trace mitral valve regurgitation. There is no mitral valve stenosis. Pulmonic Valve The pulmonic valve is likely normal. Tricuspid Valve Normal tricuspid valve structure. There is trace tricuspid valve regurgitation. There is no evidence of pulmonary hypertension. Great Vessels The asc aorta is normal in size. Venous The inferior vena cava is normal in size and collapses less than 50% with inspiration. Pericardium/Pleural There is no evidence of pericardial effusion. Prior Study Comparison Changes noted compared to prior study dated: 01/03/2022. LVEF in normal range. Recommendations, Care & Conclusions No obvious valvular pathology seen on this study. Measurements 2D Linear Measurements IVSd: 0.66 0.6-0.9/0.6-1.0 cm LVIDd: 4.43 3.9-5.3/4.2-5.9 cm LVIDd Index: 3.19 2.4-3.2/2.2-3.1 cm/m2 LVIDs: 2.82 2.0-3.6 cm LVPWd: 0.60 0.7-1.1 cm LA Diam: 3.40 2.7-3.8/3.0-4.0 cm LAIDs Index: 2.45 1.5-2.3 cm/m2 LV Mass: 101.78 67-162/88-224 g LV Mass Index: 73.22 43-95/49-115 g/m2 LVOT Diam: 2.00 3.0+(-)1.3 cm 2D Systolic Function EF 4C: 61.50 >55% EF 2C: 69.20 >55% EF BiP: 66.10 >55% Mitral Valve MV Pk E: 1.24 MV PK A: 0.75 MV Decel Time: 223.00 E/A: 1.70 E'Lateral: 13.20 E'Medial: 8.59 E/E' Med: 14.40 E/E' Lat: 9.40 PHT: 65.00 MVA PHT: 3.38 Decel [place]: 5.55 Aortic Valve AoV Pk [place]: 1.26 AoV Pk Grad: 6.00 LACIE: 2.80 LVOT LVOT Pk [place]: 1.14 LVOT Mn [place]: 0.72 LVOT VTI: 0.24 LVOT Pk Grad: 5.00 LVOT Mn Grad: 3.00 LVOT Diam: 2.00 LVOT Area: 3.14 Diastolic Function MV Pk E: 1.24 MV Pk A: 0.75 E/A: 1.70 E'Medial: 8.59 E/E' Med: 14.40 E' Laterial: 13.20 E/E' Lat: 9.40 Right Ventricle TAPSE (mm): 25.40 TVS' Pepito: 13.50 Tricuspid Valve TR Pk Pep[place]: 1.78 TR Pk Grad: 13.00 RA Press: 8.00 RVSP: 21.00 Great Vessels Aorta Sinus of Valsalva: 2.80 2.0-3.5 cm Ao Asc: 2.90 2.1-3.4 cm Pulmonary Veins Pulm Vein S/D 1.00 Pulmonary Valve PV Pk Pep[place]: 0.96 Peak PV Grad: 4.00 Updated in Other Vendor System with Status of Final Matthias Torres MD electronically signed on 08/06/2022 11:55:30 AM with status of Final
== END ==
LOC: HO.CARD 08:05
PROVIDERS: PCP Internal Medicine; Visit Provider Internal Medicine
DX: I20.1 Angina pectoris with documented spasm (principal)
CPT/HCPCS: 93306

== ENCOUNTER 2023-12-15 13:51 | Outpatient (AMB) | payer OTHER, SELFPAY ==
--- NOTE | 2023-12-15 14:52 | MHC.PC.OV ---
Vital Signs 12/15/23 15:08 Height 5 ft Weight 93 lb BMI 18.2 BP 90/62 Blood Pressure Location Lt brachial Position Sitting Pulse 65 Pulse Source Pulse Oximeter Pulse Oximetry (%) 99 Oxygen Delivery Method Room Air Intake Visit Reasons: OVERDUE ANNUAL PE Intake Note: Pt is here today for her PE Allergies morphine [MORPHINE] Allergy (Intermediate, Verified 12/15/23 15:18) NAUSEA & VOMITING, Violently ill fentanyl Adverse Reaction (Mild, Verified 12/15/23 15:18) Nausea Medication List - Last Reconciled 12/15/23 by Lexi Aldrich MD aspirin 81 mg PO DAILY 90 days levonorgestrel (Mirena) intrauterine metoprolol tartrate 25 mg PO BID 90 days Tobacco use date assessed: 12/15/23 Dental Screening Dental Screen Date: 12/15/23 Did you have a dental visit in the last 12 months?: Yes Did you have a dental problem in the last 6 months where you did not have access to dental care?: Yes Was dental information given to patient?: Patient has dentist HPI OVERDUE ANNUAL PE HPI Details 38-year-old female , with PMHx of NSTEMI, , coronary vasospasm, Celiac disease and hx of Gastritis , here today for her physical exam. She has been taking metoprolol tartrate 25 mg 1 tablet twice a day, has been feeling better, with no further episodes of chest pain, palpitation or shortness of breath. She has been advised to stop vaping, has cut down, and does not drink any alcohol. She has refused getting any vaccines. She has been going to [facility] for her routine Pap and pelvic exam, last Pap was done in 2021 with negative findings. Currently looking for another OB provider as her last 1 has retired. She has lesion on her right mormon that she wants checked and she would like to be referred also for skin cancer screening to Dermatology. [facility] Medical History (Updated 12/15/23 @ 16:03 by Lexi Aldrich MD) Refused influenza vaccine COVID-19 vaccine series declined Hx of non-ST elevation myocardial infarction (NSTEMI) History of coronary vasospasm Essential hypertension Chronic superficial gastritis Celiac disease Bile salt-induced diarrhea Surgical History (Updated 12/15/23 @ 16:03 by Lexi Aldrich MD) S/P cardiac catheterization H/O LEEP H/O section Hx of cholecystectomy History of appendectomy Family History Father Acute myocardial infarction Maternal Grandmother Ovarian cancer Maternal Grandfather Cirrhosis Social History Household Members: Family Household Members Other:: Three children, recently single Housing: House Alcohol intake: never Patient Tobacco Use Status: Never used Tobacco e-Cigarette/Vaping Use: Never Used Substance Use Type: Marijuana service: No Current occupational status: employed Cognitive needs: No Hearing needs: No Vision needs: No Questionnaire PHQ-9 Over the last 2 weeks, how often have you been bothered by any of the following problems? 1. Little interest or pleasure in doing things: not at all 2. Feeling down, depressed, or hopeless: not at all 3. Trouble falling or staying asleep, or sleeping too much: not at all 4. Feeling tired or having little energy: not at all 5. Poor appetite or overeating: not at all 6. Feeling bad about yourself - or that you are a failure or have let yourself or your family down: not at all 7. Trouble concentrating on things, such as reading the newspaper or watching television: not at all 8. Moving or speaking so slowly that other people could have noticed. Or the opposite - being so fidgety or restless that you have been moving around a lot more than usual: not at all 9. Thoughts that you would be better off or of hurting yourself in some way: not at all Total score: 0 Depression Screening Interpretation: Negative Depression Screening Done: Yes 11251 - PHQ-9 Billing: Yes Source: Developed by Drs. Steffen Muro, Rosa Maria Gutierrez, Orestes Adams and colleagues, with an educational tamy from [employer]. Thrive Questionnaire Date Thrive assessed: 12/15/23 I am a: Patient What is your living situation today?: I have a steady place to live Within the past 12 months, did the food you bought not last and you didn't have the money to get more?: Never true Within the past 12 months, did you worry whether your food would run out before you got money to buy more?: Never true Do you have trouble paying for medicines?: No Do you have trouble getting transportation to medical appointments?: No Do you have trouble paying your heating and electricity bill?: No Do you have trouble taking care of your child, family member or friend?: No Do you have trouble with day-to-day activities such as bathing, preparing meals, shopping, managing finances, etc.?: No Are you currently unemployed and looking for a job?: No Are you interested in more education?: No Please select the resources that you would like help with: None Currently or been in a relationship where the following occur: No concerns reported THRIVE Score: 0 AUDIT C Alcohol Use Questionnaire (AUDIT-C) 1. How often do you have a drink containing alcohol?: Never Total Score: 0 CLARA-7 AMB Questionnaire CLARA-7 Date CLARA - 7 assessed: 12/15/23 Feeling nervous, anxious, or on edge: 0 = Not at all Not being able to stop or control worryin = Not at all Worrying too much about different things: 0 = Not at all Trouble relaxin = Not at all Being so restless that it is hard to sit still: 0 = Not at all Becoming easily annoyed or irritable: 0 = Not at all Feeling afraid as if something awful might happen: 0 = Not at all Total CLARA-7 score (0-4 normal; 5-9 mild; 10-14 moderate; 15-21 severe): 0 Source: Developed by Drs. Steffen Muro, Rosa Maria Gutierrez, Orestes Adams and colleagues, with an educational tamy from [employer]. CLARA-7 Assessment Billing CLARA-7 Assessment Tool: CLARA-7 Assessment 78788 Review of Systems Const Denies weakness Eyes Details: Goes to [facility] Reports blurry vision ENT Denies dizziness Card Denies chest pain, Denies syncope, Denies leg edema, Denies lightheadedness, Denies dyspnea and Denies dyspnea on exertion Resp Denies cough, Denies dyspnea and Denies dyspnea on exertion GI Denies hematochezia and Denies change in stool character Reports no additional complaints Musc Denies abnormal gait, Denies muscle weakness, Denies numbness and Denies tingling Skin/Breast Reports as per HPI Neuro Denies abnormal gait, Denies dizziness, Denies syncope, Denies numbness, Denies tingling and Denies weakness Psych Reports no additional complaints Endo Reports no additional complaints Abdiaziz/Lymph Denies easy bleeding and Denies easy bruising Aller/Immun Reports no additional complaints Physical exam (Primary Care) Vital Signs: Last Vital Signs Pulse 65 12/15/23 15:08 BP 90/62 12/15/23 15:08 Pulse Ox 99 12/15/23 15:08 Oxygen Delivery Method Room Air 12/15/23 15:08 BMI result Body Mass Index 18.2 Tobacco/Smoking Status: Tobacco use Status Tobacco use date assessed 12/15/23 12/15/23 14:54 Patient Tobacco Use Status Never used Tobacco 12/15/23 14:52 e-Cigarette/Vaping Use Never Used 12/15/23 14:52 PHQ-9: PHQ-9 Score PHQ-9: Total score 0 12/15/23 15:12 Depression Screening Interpretation: Negative Thrive Assessment: Date of Thrive Assessment Date Thrive assessed 12/15/23 12/15/23 14:54 Currently or been in a relationship where the following occur: No concerns reported Advance Care Planning discussion: Completed/Scanned Date of discussion: 12/15/23 Who was present: Patient Forms completed: Health Care Proxy Time spent: 16-45 minutes Actual minutes spent: 16 Const Other: Alert oriented x3, no acute cardiorespiratory distress noted, ambulatory with normal gait Orientation/consciousness: patient oriented x3 HENMT Mouth: moist mucous membranes Eyes General: appearance normal, both eyes and all related structures Neck Other: Thyroid nonpalpable, nontender Neck: Yes full ROM, Yes no lymphadenopathy and Yes supple Chest Chest palpation & inspection: normal inspection of the chest Breast/axilla inspection: normal inspection of the breasts Breast/axilla palpation: normal palpation of the breasts Resp Effort & Inspection: normal respiratory effort and able to speak in complete sentences Auscultation: clear to auscultation bilaterally Cardio Other: S1-S2 present regular rate and rhythm, no murmurs GI Other: Normal bowel sounds, soft, nontender, no mass palpated General: Yes no CVA tenderness and Yes deferred (sees BS OB-[employer]) Back/Spine/Pelvis Back: no CVA tenderness and No back tenderness Skin Other: , hyperpigmented macule on right temporal area, Tattoo lower abdomen Neuro General: patient oriented x3, gait normal, moves all extremities, Normal light touch and pain sensation, no focal motor deficits and CN's II-XI intact bilaterally Extrem General: Yes full ROM, Yes no joint enlargement, Yes no pedal edema and Yes normal gait Psych Appearance: grossly normal and well kempt Mental Status: mental status grossly normal Speech and movement: Normal speech and movement present Affect: normal affect Attitude: cooperative Thought process: Normal thought process present Thought content: Normal thought content present Assessment and Plan Assessment & Plan (1) Annual visit for general adult medical examination with abnormal findings: Code(s): Z00.01 - Encounter for general adult medical examination with abnormal findings Plan: Will check appropriate labs. continue regular dental visit every 6 months and regular eye exams, a goes to [facility] [place]. Take adequate calcium in diet and vitamin-D 3 at 2000 IU per cap once a day, in addition to weight-bearing exercises to help maintain good muscle tone and weight control. Instructed to do self-breast exam, and recommended to get yearly mammogram, starting at age 40. Up-to-date with her cervical cancer screening, done at [facility] with last Pap smear done in 2021 with negative findings. Patient currently looking for another OBGYN as her last 1 has retired, but is looking into the [facility] practices. She has refused all vaccine (2) History of coronary vasospasm: Code(s): Z86.79 - Personal history of other diseases of the circulatory system Plan: Currently on aspirin and metoprolol tartrate 25 mg 1 tablet twice a day, strongly advised to stop vaping. Followed by cardiology (3) Encounter for counseling regarding advance directives: Code(s): Z71.89 - Other specified counseling Plan: Initiated the conversation about Advanced Directives. Advanced Directives help patients prepare for current and future decisions about their medical treatment and place of care. Discussed with patient that it is a process where a patients current condition and prognosis are reviewed, their wishes for information regarding their illness are elicited, and likely medical dilemmas are presented and options discussed. Healthcare proxy form completed today. The form can be amended as needed, reviewed yearly and make changes as needed (4) Skin lesion of face: Code(s): L98.9 - Disorder of the skin and subcutaneous tissue, unspecified (5) Celiac disease: Code(s): K90.0 - Celiac disease Plan: Patient currently on a gluten free diet (6) COVID-19 vaccine series declined: Code(s): Z28.21 - Immunization not carried out because of patient refusal; Z28.310 - Unvaccinated for COVID-19 (7) Refused influenza vaccine: Code(s): Z28.21 - Immunization not carried out because of patient refusal Orders: Orders Basic Metabolic Panel Fasting Today I20.1 - Angina pectoris with documented spasm, K90.0 - Celiac disease, Z00.01 - Encounter for general adult medical examination with abnormal findings, Z71.89 - Other specified counseling, Z86.79 - Personal history of other diseases of the circulatory system Complete Blood Count Auto Diff Today I20.1 - Angina pectoris with documented spasm, K90.0 - Celiac disease, Z00.01 - Encounter for general adult medical examination with abnormal findings, Z71.89 - Other specified counseling, Z86.79 - Personal history of other diseases of the circulatory system Lipid Panel Today I20.1 - Angina pectoris with documented spasm, K90.0 - Celiac disease, Z00.01 - Encounter for general adult medical examination with abnormal findings, Z71.89 - Other specified counseling, Z86.79 - Personal history of other diseases of the circulatory system Vitamin D 25-OH Total Today I20.1 - Angina pectoris with documented spasm, K90.0 - Celiac disease, Z00.01 - Encounter for general adult medical examination with abnormal findings, Z71.89 - Other specified counseling, Z86.79 - Personal history of other diseases of the circulatory system Alanine Aminotransferase Today I20.1 - Angina pectoris with documented spasm, K90.0 - Celiac disease, Z00.01 - Encounter for general adult medical examination with abnormal findings, Z71.89 - Other specified counseling, Z86.79 - Personal history of other diseases of the circulatory system Aspartate Amino Transferase Today I20.1 - Angina pectoris with documented spasm, K90.0 - Celiac disease, Z00.01 - Encounter for general adult medical examination with abnormal findings, Z71.89 - Other specified counseling, Z86.79 - Personal history of other diseases of the circulatory system Referrals Dermatology Referral L98.9 - Disorder of the skin and subcutaneous tissue, unspecified Coding Level of Care Code Est Pt Prev Care 18-39y(46933) Diagnoses Annual visit for general adult medical examination with abnormal findings Z00.01 History of coronary vasospasm Z86.79 Encounter for counseling regarding advance directives Z71.89 Skin lesion of face L98.9 Celiac disease K90.0 COVID-19 vaccine series declined Z28.21; Z28.310 Refused influenza vaccine Z28.21 Additional Codes Vital Signs *Quality* - Advance Care Planning discussion: Completed/Scanned ([id number]) Vital Signs *Quality* - Time spent: 16-45 minutes ([id number]) CLARA-7 Assessment Billing - CLARA-7 Assessment Tool: CLARA-7 Assessment 05271 ([id number])
[2023-12-15 15:08] VITALS: BP 90/62; PULSE 65; O2SAT 99; BMI 18.2
== END 2023-12-15 15:33 | disposition home or self-care (01) ==
PROVIDERS: PCP Internal Medicine; Visit Provider Internal Medicine
DX: Z00.01 Encounter for general adult medical examination with abnormal findings (principal); Z86.79 Personal history of other diseases of the circulatory system; Z71.89 Other specified counseling; L98.9 Disorder of the skin and subcutaneous tissue, unspecified; K90.0 Celiac disease; Z28.21 Immunization not carried out because of patient refusal; Z28.310 Unvaccinated for COVID-19; Z00.00 Encounter for general adult medical examination without abnormal findings

== ENCOUNTER → 2023-12-15 13:51 | Outpatient (BNVA) | payer OTHER, SELFPAY | PROVIDERS: PCP Internal Medicine; Visit Provider Internal Medicine | DX: Z00.01 Encounter for general adult medical examination with abnormal findings (principal); L98.9 Disorder of the skin and subcutaneous tissue, unspecified; K90.0 Celiac disease; Z86.79 Personal history of other diseases of the circulatory system; Z71.89 Other specified counseling; Z28.21 Immunization not carried out because of patient refusal; Z28.310 Unvaccinated for COVID-19 | CPT/HCPCS: 96127; 99395; 99497 ==

== ENCOUNTER 2024-01-13 09:56 | Outpatient (REF) | payer OTHER, SELFPAY ==
[2024-01-13 13:31] LABS: MANUAL DIFF FLAG NO
[2024-01-13 14:04] LABS: Basophils Absolute Auto 0.1 X10*3/uL (0.0-0.2); Basophils Percent Auto 1.4 % (0-2); Eosinophils Absolute Auto 0.6 X10*3/uL (0.0-0.4); Eosinophils Percent Auto 8.2 % (0-4); Hematocrit 41.5 % (37.0-47.0); Hemoglobin 13.8 g/dl (12.0-16.0); Imm Gran Abs Auto 0.02 X10*3/uL (0.00-0.03); Imm Gran Pct Auto 0.3 % (0.0-0.4); Lymphocytes Absolute Auto 3.4 X10*3/uL (1.2-4.9); Lymphocytes Percent Auto 48.9 % (20-40); Mean Corpuscular HGB Conc 33.3 g/dl (31.0-35.0); Mean Corpuscular Hemoglobin 29.9 pg (27.0-33.0); Mean Corpuscular Volume 89.8 fL (80.0-98.0); Mean Platelet Volume 11.6 fL (9.4-12.3); Monocytes Absolute Auto 0.6 X10*3/uL (0.1-1.2); Monocytes Percent Auto 8.1 % (2-11); Neutrophils Absolute Auto 2.3 x10*3/uL (2.0-8.3); Neutrophils Percent Auto 33.1 % (45-73); Platelet Count 291 X10*3/uL (160-400); Red Blood Count 4.62 X10*6/uL (4.20-5.50); Red Cell Distribution Width 12.2 % (11.0-16.0)
[2024-01-13 14:22] LABS: Alanine Aminotransferase 13 U/L (0-31); Anion Gap 11 (12-20); Aspartate Amino Transferase 25 U/L (5-31); Blood Urea Nitrogen 9 mg/dL (9-16); Calcium 9.3 mg/dL (8.4-10.2); Carbon Dioxide 25 mmol/L (22-29); Chloride 108 mmol/L (96-108); Cholesterol 128 mg/dL (<200); Estimated Glomerular Filt Rate > 60; Glucose Fasting 87 mg/dL (60-99); HDL Cholesterol 33 mg/dL (>40); LDL Cholesterol Calculated 88 mg/dL (<100); Potassium 4.8 mmol/L (3.3-5.1); Sodium 139 mmol/L (135-145); Triglycerides 39 mg/dL (<150)
[2024-01-13 14:27] LABS: Vitamin D 25-OH Total 66.8 ng/mL (>30)
== END 2024-01-13 09:57 | disposition home or self-care (01) ==
LOC: HO.HMGCLDS 09:56
PROVIDERS: PCP Internal Medicine; Visit Provider Internal Medicine
DX: Z00.01 Encounter for general adult medical examination with abnormal findings (principal); I20.1 Angina pectoris with documented spasm; Z86.79 Personal history of other diseases of the circulatory system; K90.0 Celiac disease; Z71.89 Other specified counseling
CPT/HCPCS: 36415; 80048; 80061; 82306; 84450; 84460; 85025

== ENCOUNTER 2024-04-13 16:06 | Outpatient (AMB) | payer OTHER, SELFPAY ==
--- NOTE | 2024-04-13 16:20 | MHC.OFFWIV ---
Intake Vital Signs 04/13/24 16:21 Height 5 ft Weight 93 lb BMI 18.2 BP 118/70 Blood Pressure Location Rt brachial Position Sitting Pulse 65 Pulse Source Pulse Oximeter Temp 98.3 F Temp Source Oral Pulse Oximetry (%) 98 Oxygen Delivery Method Room Air Intake Visit Reasons: EP lump on back of lt ear Intake Note: pt is here for lump on lfet ear behind ear over night Patient Tobacco Use Status: Never used Tobacco Allergies morphine [MORPHINE] Allergy (Intermediate, Verified 04/13/24 16:22) NAUSEA & VOMITING, Violently ill fentanyl Adverse Reaction (Mild, Verified 04/13/24 16:22) Nausea Do you need a note to return to daycare/school/sports/work: No HPI HPI Comments History of Present Illness Details History of Present Illness - The patient is a 39-year-old female presenting with a rapidly developing mass on her neck. - Noted an overnight appearance and rapid growth of the mass over two days. - Reports slight tenderness of the mass, without significant fluctuation typical of abscesses. - Headaches are present but are not significantly linked to the mass or causing notable distress. - Associated symptoms such as respiratory or otic complaints were denied. - No recent change in ear jewelry or body modification practices. - Similar mass previously noted on the contralateral side, suggesting a potential pattern. Physical Exam General: Cooperative, healthy appearing, comfortable, no acute distress and well developed Orientation: Patient oriented x3 Limitations: No limitations Head: Normal to inspection, except for a tender, ball-like lesion on the back of the head Ears: Hearing grossly normal bilaterally, no ear pain or congestion Nose: Normal external nose present, no recent respiratory infection or congestion Face and sinus: Normal facial exam Eyes: Appearance normal, both eyes and all related structures Neck: Normal visual inspection and Yes full ROM, no palpable lymph nodes noted Respiratory: Normal respiratory effort and able to speak in complete sentences. Skin: slightly tender, 0.3cm mobile, superficial, firm ball-like lesion noted posterior left ear, no rashes or other lesions noted Neuro: Patient oriented x3 Extremities: Normal to inspection [facility] Medical History (Updated 04/13/24 @ 16:38 by Salome Mederos PA-C) Refused influenza vaccine COVID-19 vaccine series declined Hx of non-ST elevation myocardial infarction (NSTEMI) History of coronary vasospasm Essential hypertension Chronic superficial gastritis Celiac disease Bile salt-induced diarrhea Surgical History (Updated 12/15/23 @ 16:03 by Lexi Aldrich MD) S/P cardiac catheterization H/O LEEP H/O section Hx of cholecystectomy History of appendectomy Family History Father Acute myocardial infarction Maternal Grandmother Ovarian cancer Maternal Grandfather Cirrhosis Social History Household Members: Family Household Members Other:: Three children, recently single Housing: House Alcohol intake: never Patient Tobacco Use Status: Never used Tobacco e-Cigarette/Vaping Use: Never Used Substance Use Type: Marijuana service: No Current occupational status: employed Cognitive needs: No Hearing needs: No Vision needs: No Review of Systems Const All systems reviewed & are unremarkable except as noted in HPI and below Physical Exam Vital Signs: Last Vital Signs Temp 98.3 F 04/13/24 16:21 Pulse 65 04/13/24 16:21 BP 118/70 04/13/24 16:21 Pulse Ox 98 04/13/24 16:21 Oxygen Delivery Method Room Air 04/13/24 16:21 BMI result Body Mass Index 18.2 Assessment & Plan Assessment & Plan (1) Epidermal cyst of neck: Code(s): L72.0 - Epidermal cyst Plan: Does not appear to be an abcess or pimple with it's characteristics, too superficial to be a lymph node, likely an epidermal cyst vs lipoma. I had FARMWORKER CRANBERRY Therese look at it, we decided to wait and watch and see how it evolves over the next few days/weeks to further define it. In the event of growth progression or it becomes painful, she should return to the [place]. She may need possibly an ultrasound or drainage, depending on how it develops. Close observation of any change in size or symptomatology increase has been emphasized, and the patient is counseled to seek a reevaluation with any new signs or symptoms. Patient was informed and verbally consented to the use of an ambient scribe for clinic note documentation during this visit. Coding Level of Care Code Est Pt Level 3 (10745) Diagnoses Epidermal cyst of neck L72.0
[2024-04-13 16:21] VITALS: BP 118/70; PULSE 65; TEMP 36.8; O2SAT 98; BMI 18.2
== END 2024-04-13 16:43 | disposition home or self-care (01) ==
PROVIDERS: PCP Internal Medicine; Visit Provider Physician Assistant
DX: L72.0 Epidermal cyst (principal)

== ENCOUNTER → 2024-04-13 16:06 | Outpatient (BNVA) | payer OTHER, SELFPAY | PROVIDERS: PCP Internal Medicine; Visit Provider Physician Assistant | DX: L72.0 Epidermal cyst (principal) | CPT/HCPCS: 99212 ==

== ENCOUNTER 2024-09-30 17:04 | Emergency (ER) | payer OTHER, SELFPAY ==
--- NOTE | ~2024-09-30 | US_ITS ---
CLINICAL HISTORY: abnormal vaginal bleeding US pelvis: Transabdominal and Transvaginal with ovarian color Doppler and arterial and venous pulse doppler spectral analysis: Comparison: None Findings: The uterus is normal in size, 7 cm in length Endometrial thickness is 3 mm. An intrauterine device is in satisfactory position The RIGHT ovary measures 2.7 x 1.6 x 1.7 cm The LEFT ovary measures 2.2 x 1.5 x 1.4 cm. Bilateral ovarian spectral Doppler signals are normal with continuous diastolic flow indicating low resistance. No solid ovarian masses. A 12 mm fluid collection is present in the posterior cul-de-sac. Impression: IUD in satisfactory position. Uterus is normal in size with no visible fibroids. This document has been electronically signed by: Raffy Delgado MD on 09/30/2024 19:18:41
[2024-09-30 17:47] VITALS: BP 156/88; PULSE 80; RESP 20; TEMP 37.2; O2SAT 100; BMI 18.2
--- NOTE | 2024-09-30 17:48 | ED.ABDPAIN ---
HPI - Abdominal Pain General Chief Complaint: General Medical Stated Complaint: IUD over 1yr/cramping and bleeding Time Seen by Provider: 09/30/24 18:23 Source: patient Limitations: no limitations History of Present Illness ED Provider: Brooke Galeana PA-C HPI narrative: 39-year-old female presents with dysfunctional uterine bleeding. She had a Mirena placed in 2 years ago she has not had her menses until this time. She reports cramping in bleeding with dark blood since yesterday. Patient is sexually active denies any pelvic trauma. She denies any dysuria urgency or frequency and no back pain. She has not feel lightheaded. She is not soaking through more than 1 pad an hour. Patient did try/attempt to feel this whether or not she felt the strings but due to the flow was not able to. Denies risk for STD. Related Data Home Medications ?Medication ?Instructions ?Recorded ?Confirmed levonorgestrel 21 mcg/24 hr (up to intrauterine 12/15/23 8 years) 52 mg intrauterine device (Mirena) Previous Rx's ?Medication ?Instructions ?Recorded aspirin 81 mg chewable tablet 81 mg PO DAILY 90 days #90 tabs 02/20/22 metoprolol tartrate 25 mg tablet 25 mg PO BID #60 tabs 05/29/24 Allergies Allergy/AdvReac Type Severity Reaction Status Date / Time morphine (MORPHINE) Allergy Intermediate NAUSEA & Verified 09/30/24 17:51 VOMITING, Violently ill fentanyl AdvReac Mild Nausea Verified 09/30/24 17:51 PMFSH Past Medical History Medical History (Updated 09/30/24 @ 19:32 by AURELIO Jaramillo) Refused influenza vaccine COVID-19 vaccine series declined Hx of non-ST elevation myocardial infarction (NSTEMI) History of coronary vasospasm Essential hypertension Chronic superficial gastritis Celiac disease Bile salt-induced diarrhea Surgical History (Updated 12/15/23 @ 16:03 by Lexi Aldrich MD) S/P cardiac catheterization H/O LEEP H/O section Hx of cholecystectomy History of appendectomy Family History Family History Father Acute myocardial infarction Maternal Grandmother Ovarian cancer Maternal Grandfather Cirrhosis Social History Social History Household Members: Family Household Members Other:: Three children, recently single Housing: House Alcohol intake: never Patient Tobacco Use Status: Never used Tobacco e-Cigarette/Vaping Use: Never Used Substance Use Type: Marijuana Advance Directives: No Advance Directives Information Provided: No service: No Current occupational status: employed Cognitive needs: No Hearing needs: No Vision needs: No Physical Exam ED Vital Signs: Vital Signs - 24 hr 09/30/24 17:47 09/30/24 18:54 Temperature 98.9 F 98.7 F Pulse Rate 80 83 Respiratory Rate 20 16 Blood Pressure 156/88 H 142/82 H Pulse Oximetry 100 83 L Oxygen Delivery Method Room Air Room Air BMI result Body Mass Index 18.2 Const Other: Alert well-appearing Orientation/consciousness: patient oriented x3 Resp Effort & Inspection: normal respiratory effort Cardio Other: Normal peripheral perfusion Other: Deferred, not having heavy bleeding in already had the transvaginal ultrasound Skin Other: Warm dry no rash Neuro General: patient oriented x3, gait normal, no focal motor deficits and CN's II-XI intact bilaterally Psych Other: Cooperative Course Course Course Narrative: This is a RME preformed in triage by Tracey Grayson PA-C. Date: 09/30/24, time 550 pm. Patient presents with abnormal vaginal bleeding. She had a Mirena placed in 2 years ago she has not had her menses until this time. She reports cramping in bleeding with dark blood since yesterday. Patient is sexually active denies any pelvic trauma. She denies any dysuria urgency or frequency and no back pain. She has not feel lightheaded. She is not soaking through more than 1 pad an hour. Patient did try/attempt to feel this whether or not she felt the strings but due to the flow was not able to.. Work UP: Transvaginal ultrasound along with basic labs and PT/INR., UA/Preg Will defer full ROS and PE to treating provider. Patient will continued to be monitored in the interim. Medical Decision Making Medical Decision Making [facility] Narrative: 39-year-old female presents with dysfunctional uterine bleeding. She had a Mirena placed in 2 years ago she has not had her menses until this time. She reports cramping in bleeding with dark blood since yesterday. Patient is sexually active denies any pelvic trauma. She denies any dysuria urgency or frequency and no back pain. She has not feel lightheaded. She is not soaking through more than 1 pad an hour. Patient did try/attempt to feel this whether or not she felt the strings but due to the flow was not able to. Denies risk for STD. No chronic issues History: Per patient I have considered the following differential diagnoses: Ectopic , PID, time for a new Mirena, dislodgement of the device, endometrial cancer, fibroid Plan: Screening labs including test urinalysis and transvaginal ultrasound I have already been obtained. The patient does not have any risk factors for STD, her bleeding is minimal, her H&H are stable, no indication for pelvic exam we will wait for her ultrasound results. I have independently reviewed the following tests: Labs: No leukocytosis, not anemic, no electrolyte abnormality, not , urine not infected Transvaginal ultrasound:mpression: IUD in satisfactory position. Uterus is normal in size with no visible fibroids. Lab Data 09/30/24 18:00 09/30/24 18:00 Labs: Lab Results 09/30/24 09/30/24 Range/Units 18:00 18:21 WBC 8.5 (4.8-10.8) X10*3/uL RBC 4.42 (4.20-5.50) X10*6/uL Hgb 13.3 (12.0-16.0) g/dl Hct 38.2 (37.0-47.0) % MCV 86.4 (80.0-98.0) fL MCH 30.1 (27.0-33.0) pg MCHC 34.8 (31.0-35.0) g/dl RDW 12.2 (11.0-16.0) % Plt Count 268 (160-400) X10*3/uL MPV 10.4 (9.4-12.3) fL Immature Gran % (Auto) 0.2 (0.0-0.4) % Neut % (Auto) 67.4 (45-73) % Lymph % (Auto) 24.1 (20-40) % Cedar % (Auto) 4.7 (2-11) % Eos % (Auto) 2.9 (0-4) % Baso % (Auto) 0.7 (0-2) % Lymph # (Auto) 2.0 (1.2-4.9) X10*3/uL Cedar # (Auto) 0.4 (0.1-1.2) X10*3/uL Eos # (Auto) 0.3 (0.0-0.4) X10*3/uL Baso # (Auto) 0.1 (0.0-0.2) X10*3/uL Abs Immat Gran (auto) 0.02 (0.00-0.03) X10*3/uL Absolute Neuts (auto) 5.7 (2.0-8.3) x10*3/uL Absolute Nucleated RBC 0.000 (0.0-0.012) X10*3/uL Nucleated RBC % (auto) 0.0 (0.0-0.2) /100WBC PT 12.9 H (10.9-12.4) SEC INR 1.1 (0.9-1.1) Sodium 139 (135-145) mmol/L Potassium 4.2 (3.3-5.1) mmol/L Chloride 109 H (96-108) mmol/L Carbon Dioxide 22 (22-29) mmol/L Anion Gap 12 (12-20) BUN 10 (9-16) mg/dL Creatinine 0.70 (0.5-1.4) mg/dL Estim Creat Clear Calc 73.3 Estimated GFR > 60 Random Glucose 100 (60-115) mg/dL Calcium 9.5 (8.4-10.2) mg/dL Magnesium 2.1 (1.6-2.6) mg/dL Urine Color Yellow Urine Appearance Clear Urine pH 7.0 (5.0-9.0) Ur Specific G[place]ord 1.020 (1.005-1.025) Urine Protein Negative (Neg-Trace) mg/dL Urine Glucose (UA) Negative (Negative) mg/dL Urine Ketones Trace (Negative) mg/dL Urine Blood Large (3+) H (Negative) Urine Nitrite Negative (Negative) Ur Leukocyte Esterase Trace H (Negative) Urine RBC 6-10 H (0-2) /HPF Urine WBC 0-5 (0-5) /HPF Ur Squamous Epith Cells 3-5 (0-2) /HPF Urine Bacteria None Seen (None Seen) Hyaline Casts 3-5 (0-2) /LPF Urine Test NEGATIVE (NEGATIVE) Discharge Plan Discharge Clinical Impression: Bleeding, uterine, dysfunctional Patient Disposition: Home, Self-Care Instructions: Abnormal (Dysfunctional) Uterine Bleeding (ED) Additional Instructions: All of your screening labs were normal, you were not , your urine is not infected. The transvaginal ultrasound was normal as well, the Mirena is in proper placement. One of the side effects and Mirena is dysfunctional uterine bleeding. 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 I am also providing you with a contact for our service. Prescriptions: No Action aspirin 81 mg tablet,chewable 81 mg PO DAILY 90 Days Qty: 90 5RF metoprolol tartrate 25 mg tablet 25 mg PO BID Qty: 60 0RF Rx Instructions: MUST MAKE CARDIOLOGY FOLLOW-UP FOR MORE REFILLS. Mirena 21 mcg/24 hr (8 yrs) 52 mg intrauterine device intrauterine Referrals: Erickson Dubon MD [Physician, [employer] DES[employer]INE[employer]] Referral Note: Has Mirena, experiencing dysfunctional uterine bleeding, transvaginal ultrasound normal, is having barriers to seeing her own OBGYN, they retired Print Language: Ecuadorean
[2024-09-30 18:05] LABS: MANUAL DIFF FLAG NO
[2024-09-30 18:08] LABS: Hematocrit 38.2 % (37.0-47.0); Hemoglobin 13.3 g/dl (12.0-16.0); Imm Gran Abs Auto 0.02 X10*3/uL (0.00-0.03); Imm Gran Pct Auto 0.2 % (0.0-0.4); Lymphocytes Absolute Auto 2.0 X10*3/uL (1.2-4.9); Mean Corpuscular HGB Conc 34.8 g/dl (31.0-35.0); Mean Corpuscular Hemoglobin 30.1 pg (27.0-33.0); Mean Corpuscular Volume 86.4 fL (80.0-98.0); NRBC Abs Auto 0.000 X10*3/uL (0.0-0.012); NRBC Pct Auto 0.0 /100WBC (0.0-0.2); Platelet Count 268 X10*3/uL (160-400); Red Blood Count 4.42 X10*6/uL (4.20-5.50); White Blood Count 8.5 X10*3/uL (4.8-10.8)
[2024-09-30 18:15] LABS: INTERNATIONAL NORM RATIO 1.1 (0.9-1.1); Prothrombin Time 12.9 SEC (10.9-12.4)
[2024-09-30 18:19] LABS: Anion Gap 12 (12-20); Blood Urea Nitrogen 10 mg/dL (9-16); Calcium 9.5 mg/dL (8.4-10.2); Carbon Dioxide 22 mmol/L (22-29); Chloride 109 mmol/L (96-108); Creatinine Clr Calc Pharmacy 73.3; Estimated Glomerular Filt Rate > 60; Magnesium 2.1 mg/dL (1.6-2.6); Potassium 4.2 mmol/L (3.3-5.1); Sodium 139 mmol/L (135-145)
[2024-09-30 18:32] LABS: Appearance Urine Clear; Glucose Urine UA Negative (Negative); PH 7.0 (5.0-9.0); Specific Gravity - Urine 1.020 (1.005-1.025); UMIC TRIGGER UACC YES
[2024-09-30 18:33] LABS: UPreg QC Valid YES
[2024-09-30 18:54] VITALS: BP 142/82; PULSE 83; RESP 16; TEMP 37.1; O2SAT 83
[2024-09-30 19:42] VITALS: BP 142/82; PULSE 83; RESP 16; TEMP 37.1; O2SAT 95
== END 2024-09-30 19:43 | disposition home or self-care (01) ==
PROVIDERS: Physician Assistant Medical; Emergency Provider Emergency Medicine; PCP Internal Medicine
DX: N93.8 Other specified abnormal uterine and vaginal bleeding (principal)
CPT/HCPCS: 36415; 76830; 76856; 80048; 81001; 81025; 83735; 85025; 85610; 99283; 99284

== ENCOUNTER → 2024-09-30 17:49 | Outpatient (BNV) | payer OTHER, SELFPAY | PROVIDERS: Emergency Provider Emergency Medicine; PCP Internal Medicine; Visit Provider Radiology Diagnostic Radiology | DX: N93.9 Abnormal uterine and vaginal bleeding, unspecified (principal) | CPT/HCPCS: 76830; 76856 ==

== ENCOUNTER 2025-01-09 14:59 | Outpatient (AMB) | payer OTHER, SELFPAY ==
--- NOTE | 2025-01-09 15:17 | MHC.PC.OV ---
Vital Signs 01/09/25 15:20 Height 5 ft Weight 99 lb 2 oz BMI 19.4 BP 92/60 Blood Pressure Location Lt brachial Position Sitting Respiration 16 Pulse 61 Pulse Source Pulse Oximeter Temp 98.3 F Temp Source Oral Pulse Oximetry (%) 99 Oxygen Delivery Method Room Air Intake Visit Reasons: Annual PE Intake Note: Pt is here today for her PE Is last menstrual period known: Yes (spot) Last menstrual period: 11/01/24 Allergies morphine (MORPHINE) Allergy (Intermediate, Verified 01/09/25 15:29) NAUSEA & VOMITING, Violently ill fentanyl Adverse Reaction (Mild, Verified 01/09/25 15:29) Nausea Medication List - Last Reconciled 01/09/25 by Lexi Aldrich MD levonorgestrel (Mirena) intrauterine Tobacco use date assessed: 01/09/25 Dental Screening Dental Screen Date: 01/09/25 Did you have a dental visit in the last 12 months?: No Did you have a dental problem in the last 6 months where you did not have access to dental care?: No Was dental information given to patient?: Patient has dentist HPI Annual PE HPI Details 39-year-old lady with history anxiety disorder, coronary vasospasm , history of hypertension, previously on amlodipine, now off medication with blood pressure within normal limits., here today for her physical exam She goes to [facility], for her routine Pap and pelvic exam, with an IUD inserted in 2021 by Roopa Arisa , who has retired. Does not smoke, has stopped vaping but does admit to taking marijuana 3 times a day as needed to help with anxiety attacks.. Would like to see if she can be placed back on hydroxyzine which she has used in the past to help her sleep. Declines referral for therapy or taking any other medications to help control her anxiety. Has declined all vaccines offered Patient states that she has been feeling well except for problems with sweaty palms and feet especially in the morning [facility] Medical History (Updated 01/09/25 @ 16:02 by Lexi Aldrich MD) Marijuana user Epidermal cyst of neck Refused influenza vaccine COVID-19 vaccine series declined Hx of non-ST elevation myocardial infarction (NSTEMI) History of coronary vasospasm Essential hypertension Chronic superficial gastritis Celiac disease Bile salt-induced diarrhea Surgical History S/P cardiac catheterization H/O LEEP H/O section Hx of cholecystectomy History of appendectomy Family History Father Acute myocardial infarction Maternal Grandmother Ovarian cancer Maternal Grandfather Cirrhosis Social History Household Members: Family Household Members Other:: Three children, recently single Housing: House Alcohol intake: never Patient Tobacco Use Status: Never used Tobacco e-Cigarette/Vaping Use: Never Used Substance Use Type: Marijuana service: No Current occupational status: employed Cognitive needs: No Hearing needs: No Vision needs: No Female Reproductive History Menstrual Date of last menstrual period: 11/01/24 control method: progestin IUCD (Inserted 01/16/2022, at [facility], to be removed 01/16/2029) Questionnaire PHQ-9 Over the last 2 weeks, how often have you been bothered by any of the following problems? 1. Little interest or pleasure in doing things: not at all 2. Feeling down, depressed, or hopeless: not at all 3. Trouble falling or staying asleep, or sleeping too much: several days 4. Feeling tired or having little energy: not at all 5. Poor appetite or overeating: not at all 6. Feeling bad about yourself - or that you are a failure or have let yourself or your family down: not at all 7. Trouble concentrating on things, such as reading the newspaper or watching television: not at all 8. Moving or speaking so slowly that other people could have noticed. Or the opposite - being so fidgety or restless that you have been moving around a lot more than usual: not at all 9. Thoughts that you would be better off or of hurting yourself in some way: not at all Total score: 1 Depression Screening Interpretation: Negative Depression Screening Done: Yes 61871 - PHQ-9 Billing: Yes Source: Developed by Drs. Steffen Muro, Rosa Maria Gutierrez, Orestes Adams and colleagues, with an educational tamy from [employer]. Thrive Questionnaire Date Thrive assessed: 01/08/25 I am a: Patient What is your living situation today?: I have a steady place to live Within the past 12 months, did the food you bought not last and you didn't have the money to get more?: Never true Within the past 12 months, did you worry whether your food would run out before you got money to buy more?: Never true Do you have trouble paying for medicines?: No Do you have trouble getting transportation to medical appointments?: No Do you have trouble paying your heating and electricity bill?: No Do you have trouble taking care of your child, family member or friend?: No Do you have trouble with day-to-day activities such as bathing, preparing meals, shopping, managing finances, etc.?: No Are you currently unemployed and looking for a job?: No Are you interested in more education?: No Please select the resources that you would like help with: None Currently or been in a relationship where the following occur: No concerns reported THRIVE Score: 0 AUDIT C Alcohol Use Questionnaire (AUDIT-C) 1. How often do you have a drink containing alcohol?: Never 2. How many drinks containing alcohol do you have on a typical day when you are drinking?: 1 or 2 3. How often do you have six or more drinks on one occasion?: Never Total Score: 0 CLARA-7 AMB Questionnaire CLARA-7 Date CLARA - 7 assessed: 01/09/25 Feeling nervous, anxious, or on edge: 1 = Several days Not being able to stop or control worryin = Several days (Usually at night) Worrying too much about different things: 1 = Several days Trouble relaxin = Not at all Being so restless that it is hard to sit still: 0 = Not at all Becoming easily annoyed or irritable: 0 = Not at all Feeling afraid as if something awful might happen: 0 = Not at all Total CLARA-7 score (0-4 normal; 5-9 mild; 10-14 moderate; 15-21 severe): 3 Source: Developed by Drs. Steffen Muro, Rosa Maria Gutierrez, Orestes Adams and colleagues, with an educational tamy from [employer] CLARA-7 Assessment Billing CLARA-7 Assessment Tool: CLARA-7 Assessment 78326 Review of Systems Const Denies weakness Eyes Details: [facility] [place], glaucoma suspect Reports blurry vision ENT Details: Dental cleaning every six-months Reports no additional complaints Card Denies chest pain, Denies syncope, Denies leg edema, Denies lightheadedness, Denies dyspnea and Denies dyspnea on exertion Resp Denies cough, Denies dyspnea and Denies dyspnea on exertion GI Denies hematochezia and Denies change in stool character Reports no additional complaints and Reports abnormal menses (Has been getting vaginal spotting since insertion of Mirena) Musc Denies abnormal gait, Denies muscle weakness, Denies numbness and Denies tingling Skin/Breast Reports as per HPI Neuro Denies abnormal gait, Denies syncope, Denies numbness, Denies tingling and Denies weakness Psych Reports no additional complaints Endo Reports no additional complaints Abdiaziz/Lymph Denies easy bleeding and Denies easy bruising Aller/Immun Reports no additional complaints Physical exam (Primary Care) Vital Signs: Last Vital Signs Temp 98.3 F 01/09/25 15:20 Pulse 61 01/09/25 15:20 Resp 16 01/09/25 15:20 BP 92/60 01/09/25 15:20 Pulse Ox 99 01/09/25 15:20 Oxygen Delivery Method Room Air 01/09/25 15:20 BMI result Body Mass Index 19.4 Tobacco/Smoking Status: Tobacco use Status Tobacco use date assessed 01/09/25 01/09/25 15:26 Patient Tobacco Use Status Never used Tobacco 01/09/25 15:19 e-Cigarette/Vaping Use Never Used 01/09/25 15:19 PHQ-9: PHQ-9 Score PHQ-9: Total score 1 01/09/25 15:19 Depression Screening Interpretation: Negative Thrive Assessment: Date of Thrive Assessment Date Thrive assessed 01/08/25 01/09/25 15:19 Currently or been in a relationship where the following occur: No concerns reported Const Other: Alert oriented x3, no acute cardiorespiratory distress noted, ambulatory with normal gait HENMT Other: Positive tongue piercing Mouth: moist mucous membranes Eyes General: appearance normal, both eyes and all related structures Neck Other: Thyroid nonpalpable, nontender Neck: Yes full ROM, Yes no lymphadenopathy and Yes supple Chest Chest palpation & inspection: normal inspection of the chest Breast/axilla inspection: normal inspection of the breasts Breast/axilla palpation: normal palpation of the breasts Resp Effort & Inspection: normal respiratory effort and able to speak in complete sentences Auscultation: clear to auscultation bilaterally Cardio Other: S1-S2 present regular rate and rhythm, no murmurs GI Other: Normal bowel sounds, soft, nontender, no mass palpated General: Yes no CVA tenderness and Yes deferred (sees [facility]) Back/Spine/Pelvis Back: no CVA tenderness and No back tenderness Skin Other: Tattoo lower abdomen Neuro General: gait normal, moves all extremities, Normal light touch and pain sensation, no focal motor deficits and CN's II-XI intact bilaterally Extrem General: Yes full ROM, Yes no joint enlargement, Yes no pedal edema and Yes normal gait Psych Appearance: grossly normal and well kempt Mental Status: mental status grossly normal Speech and movement: Normal speech and movement present Affect: normal affect Results Reviewed Results Reviewed: Name: Dyana Doan Age/Sex: 39/F : 1985 Unit#: [id number] Attend Dr: Ravi Friedman MD Re09/30/24 [facility]: [facility]: SPEC : [id number] GATO: 09/30/24 STATUS: COMP REQ : [id number] RECD: 09/30/24-[address]: Tracey Grayson PA-C COMP: 09/30/24-1818 ENTERED: 09/30/24-[address]: Lexi Aldrich MD ORDERED: BMP, MG Test Result Flag Reference Sodium 139 135-145 mmol/L Potassium 4.2 3.3-5.1 mmol/L CL 109 H 96-108 mmol/L CO2 22 22-29 mmol/L Gap 12 12-20 BUN 10 9-16 mg/dL Creat 0.70 0.5-1.4 mg/dL Estimated CrCl 73.3 Provided height and weight: 152.4 cm, 42.2 kg. eGFR (calculated from the MDRD study equation) and eCrCl (calculated from the Cockcroft-Gault equation) are based on different parameters and may not yield comparable results. If eCrCl result is absurd, please check patient's height/weight. eGFR > 60 Chronic Kidney Disease: Estimated GFR < 60 mL/min/1.73m2 Severe Kidney Disease: Estimated GFR < 15 mL/min/1.73m2 Glucose, Random 100 60-115 mg/dL CA 9.5 8.4-10.2 mg/dL Magnesium 2.1 1.6-2.6 mg/dL Name: Dyana Doan Age/Sex: 39/F : 1985 Unit#: [id number] Attend Dr: Ravi Friedman MD Re09/30/24 Status: DEP ER Location: [facility] Disch: SPEC : [id number] GATO: 09/30/24 STATUS: COMP REQ : [id number] RECD: 09/30/[address]: Tracey Grayson PA-C COMP: 09/30/24 ENTERED: 09/30/[address]: Lexi Aldrich MD ORDERED: CBC Auto Diff Test Result Flag Reference WBC 8.5 4.8-10.8 X10*3/uL RBC 4.42 4.20-5.50 X10*6/uL HGB 13.3 12.0-16.0 g/dl HCT 38.2 37.0-47.0 % MCV 86.4 80.0-98.0 fL MCH 30.1 27.0-33.0 pg MCHC 34.8 31.0-35.0 g/dl RDW 12.2 11.0-16.0 % PLT 268 160-400 X10*3/uL MPV 10.4 9.4-12.3 fL Neut Pct Auto 67.4 45-73 % ImGran Pct Auto 0.2 0.0-0.4 % Lymp Pct Auto 24.1 20-40 % [place] Pct Auto 4.7 2-11 % Eos Pct Auto 2.9 0-4 % Baso Pct Auto 0.7 0-2 % NRBC Pct Auto 0.0 0.0-0.2 /100WBC ANC Neut Abs # 5.7 2.0-8.3 x10*3/uL ImGran Abs Auto 0.02 0.00-0.03 X10*3/uL Lymph Abs Auto 2.0 1.2-4.9 X10*3/uL [place] Abs Auto 0.4 0.1-1.2 X10*3/uL Eos Abs Auto 0.3 0.0-0.4 X10*3/uL Baso Abs Auto 0.1 0.0-0.2 X10*3/uL NRBC Abs Auto 0.000 0.0-0.012 X10*3/uL Coding Level of Care Code Est Pt Prev Care [id number]([id number]) Diagnoses Annual visit for general adult medical examination with abnormal findings Z00.01 Refused influenza vaccine Z28.21 COVID-19 vaccine series declined Z28.21; Z28.310 Marijuana user F12.90 Generalized anxiety disorder F41.1 Additional Codes PHQ-9 - 01096 - PHQ-9 Billing: Yes ([id number]) CLARA-7 Assessment Billing - CLARA-7 Assessment Tool: CLARA-7 Assessment 47860 ([id number]) Assessment & Plan Assessment & Plan (1) Annual visit for general adult medical examination with abnormal findings: Code(s): Z00.01 - Encounter for general adult medical examination with abnormal findings Plan: Will check appropriate labs. Continued right dental visit every 6 months and regular eye exams, at least every 2 years. Take adequate calcium in diet and vitamin-D 3 at 2000 IU per cap once a day, in addition to weight-bearing exercises to help maintain good muscle tone and weight control. Instructed to do self-breast exam, and recommended to get yearly mammogram, starting at age 40. Up-to-date with her cervical cancer screening, last done in 2021. Goes to [facility] patient does not want to get any vaccines (2) Refused influenza vaccine: Code(s): Z28.21 - Immunization not carried out because of patient refusal Category: Medical Plan: Declines flu shot (3) COVID-19 vaccine series declined: Code(s): Z28.21 - Immunization not carried out because of patient refusal; Z28.310 - Unvaccinated for COVID-19 Category: Medical Plan: Does not want to get vaccinated with COVID (4) Marijuana user: Code(s): F12.90 - Cannabis use, unspecified, uncomplicated Category: Medical Plan: The patient advised to not use on a regular basis (5) Generalized anxiety disorder: Code(s): F41.1 - Generalized anxiety disorder Plan: Patient has been smoking marijuana as needed for acute anxiety attacks, advised to cut back. Prescription also given for hydroxyzine 25 mg to take 1/2-1 tablet as needed at night to help with sleeping and for acute anxiety attacks. Orders: Orders Alanine Aminotransferase Today K29.30 - Chronic superficial gastritis without bleeding, Z13.1 - Encounter for screening for diabetes mellitus, Z13.220 - Encounter for screening for lipoid disorders Aspartate Amino Transferase Today K29.30 - Chronic superficial gastritis without bleeding, Z13.1 - Encounter for screening for diabetes mellitus, Z13.220 - Encounter for screening for lipoid disorders Lipid Panel Today K29.30 - Chronic superficial gastritis without bleeding, Z13.1 - Encounter for screening for diabetes mellitus, Z13.220 - Encounter for screening for lipoid disorders Glucose Fasting Today K29.30 - Chronic superficial gastritis without bleeding, Z13.1 - Encounter for screening for diabetes mellitus, Z13.220 - Encounter for screening for lipoid disorders Vitamin D 25-OH Total Today K29.30 - Chronic superficial gastritis without bleeding, Z13.1 - Encounter for screening for diabetes mellitus, Z13.220 - Encounter for screening for lipoid disorders Hemoglobin and Hematocrit Today K29.30 - Chronic superficial gastritis without bleeding, Z13.1 - Encounter for screening for diabetes mellitus, Z13.220 - Encounter for screening for lipoid disorders TSH reflex Free T4 Today 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
[2025-01-09 15:20] VITALS: BP 92/60; PULSE 61; RESP 16; TEMP 36.8; O2SAT 99; BMI 19.4
== END 2025-01-09 15:48 | disposition home or self-care (01) ==
LOC: HO.HMCC 15:00
PROVIDERS: PCP Internal Medicine; Visit Provider Internal Medicine
DX: Z00.01 Encounter for general adult medical examination with abnormal findings (principal); Z28.21 Immunization not carried out because of patient refusal; Z28.310 Unvaccinated for COVID-19; F12.90 Cannabis use, unspecified, uncomplicated; F41.1 Generalized anxiety disorder

== ENCOUNTER → 2025-01-09 14:59 | Outpatient (BNVA) | payer OTHER, SELFPAY | PROVIDERS: PCP Internal Medicine; Visit Provider Internal Medicine | DX: Z00.01 Encounter for general adult medical examination with abnormal findings (principal); F12.90 Cannabis use, unspecified, uncomplicated; F41.1 Generalized anxiety disorder; Z28.21 Immunization not carried out because of patient refusal; Z13.31 Encounter for screening for depression; Z13.39 Encounter for screening examination for other mental health and behavioral disorders | CPT/HCPCS: 96127; 99395 ==

== ENCOUNTER 2025-01-16 09:32 | Outpatient (REF) | payer OTHER, SELFPAY ==
[2025-01-16 13:40] LABS: Hematocrit 39.7 % (37.0-47.0); Hemoglobin 13.0 g/dl (12.0-16.0)
[2025-01-16 14:18] LABS: Alanine Aminotransferase 15 U/L (0-31); Aspartate Amino Transferase 24 U/L (5-31); Cholesterol 148 mg/dL (<200); HDL Cholesterol 28 mg/dL (>40); Triglycerides 66 mg/dL (<150)
== END 2025-01-16 09:33 | disposition home or self-care (01) ==
LOC: HO.HMGCLDS 09:32
PROVIDERS: PCP Internal Medicine; Visit Provider Internal Medicine
DX: Z13.220 Encounter for screening for lipoid disorders (principal); Z13.1 Encounter for screening for diabetes mellitus; K29.30 Chronic superficial gastritis without bleeding; L74.512 Primary focal hyperhidrosis, palms
CPT/HCPCS: 36415; 80061; 82306; 82947; 84443; 84450; 84460; 85014; 85018